=== PATIENT | male | born 1955 | race Caucasian/White ===

== ENCOUNTER 2019-11-21 08:11 | Outpatient (REF) | payer OTHER, SELFPAY ==
--- NOTE | 2019-11-21 08:15 | MR_ITS ---
EXAMINATION: MR LUMBAR SPINE WITHOUT CONTRAST CLINICAL INFORMATION: Right SI radiculopathy. Rule out disc and foraminal encroachment. COMPARISON: None TECHNIQUE: MRI of the lumbar spine was obtained using routine sequences without contrast. FINDINGS: The lumbar vertebral bodies maintain normal height. There is trace retrolisthesis of L2 on L3 with moderate disc height loss. Additional mild disc height loss is seen in the lower thoracic spine and at the L1-L2 level. Chronic fatty endplate changes with mild amount of subchondral marrow edema is seen at L2-L3. The distal spinal cord appears normal. The conus medullaris terminates normally at the L1 level. Bilateral T2 hyperintense renal cysts are noted. The extraspinal soft tissues are otherwise within normal limits. SPINAL LEVELS: T12-L1: Disc bulging with shallow central protrusion. No spinal canal or neural foraminal stenosis. L1-L2: Disc bulging with mild facet arthropathy. Mild flattening of the ventral thecal sac resulting in mild spinal canal stenosis. Minimal narrowing of the left neural foramen. L2-L3: Disc bulging with facet arthropathy resulting in mild to moderate spinal canal stenosis. Right foraminal extrusion causing compression of the exiting right L2 nerve root. Right more than left subarticular zones are effaced with resultant mass effect on the traversing right more than left L3 nerve roots. Mild narrowing left neural foramen. L3-L4: Disc bulging with shallow central protrusion. Moderate facet arthropathy. Mild spinal canal stenosis. Moderate right and mild left neural foraminal stenosis with mild mass effect on the exiting right L3 nerve root. L4-L5: Disc bulging with central protrusion causing mild flattening of the ventral thecal sac with encroachment on the subarticular zones. Moderate facet arthropathy. Mild bilateral neural foraminal stenosis without significant foraminal nerve root compression. L5-S1: Disc bulging with posterior annular fissuring. Moderate facet arthropathy. No spinal canal or neural foraminal stenosis. IMPRESSION: Multilevel degenerative spondylotic changes. At L2-L3 there is right foraminal extrusion causing compression of the exiting right L2 nerve root. Mild to moderate spinal canal stenosis, bilateral subarticular stenosis with mass effect on the traversing L3 nerve root and mild narrowing of the left neural foramen across this level. At L3-L4 there is moderate right and mild left neural foraminal stenosis with mild mass effect on the exiting right L3 nerve root. Additional milder spondylosis is detailed above.
== END 2019-11-21 08:12 | disposition home or self-care (01) ==
LOC: HO.MRI 08:11
PROVIDERS: PCP Internal Medicine; Visit Provider Psychiatry & Neurology Neurology
DX: M54.16 Radiculopathy, lumbar region (principal)
CPT/HCPCS: 72148

== ENCOUNTER → 2020-06-30 10:17 | Outpatient (BNVA) | payer OTHER, SELFPAY | PROVIDERS: PCP Internal Medicine; Visit Provider Orthopaedic Surgery | DX: M17.12 Unilateral primary osteoarthritis, left knee (principal) | CPT/HCPCS: 20610; J1040 ==

== ENCOUNTER 2020-11-19 08:41 | Outpatient (REF) | payer OTHER, SELFPAY ==
[2020-11-19 10:26] LABS: MANUAL DIFF FLAG NO
[2020-11-19 10:30] LABS: Basophils Percent Auto 0.7 % (0-2); Eosinophils Absolute Auto 0.1 X10*3/uL (0.0-0.4); Eosinophils Percent Auto 2.7 % (0-4); Hematocrit 41.8 % (42-52); Hemoglobin 13.9 g/dl (14.0-18.0); Imm Gran Abs Auto 0.02 X10*3/uL (0.00-0.03); Imm Gran Pct Auto 0.4 % (0.0-0.4); Lymphocytes Absolute Auto 1.2 X10*3/uL (1.2-4.9); Lymphocytes Percent Auto 25.8 % (20-40); Mean Corpuscular HGB Conc 33.3 g/dl (31.0-36.0); Mean Corpuscular Hemoglobin 29.6 pg (27.0-33.0); Mean Corpuscular Volume 88.9 fL (80-98); Mean Platelet Volume 11.4 fL (9.4-12.4); Monocytes Absolute Auto 0.5 X10*3/uL (0.1-1.2); Neutrophils Absolute Auto 2.7 X10*3/uL (2.0-8.3); Neutrophils Percent Auto 59.4 % (45-73); Platelet Count 172 X10*3/uL (160-400); Red Cell Distribution Width 13.2 % (11.0-16.0); White Blood Count 4.5 X10*3/uL (4.8-10.8)
[2020-11-19 10:52] LABS: Alanine Aminotransferase 27 U/L (0-40); Albumin Level 4.2 g/dL (3.5-5.0); Alkaline Phosphatase 65 U/L (39-117); Anion Gap 10 (12-20); Aspartate Amino Transferase 17 U/L (5-37); Bilirubin Total 0.8 mg/dL (0.0-1.0); Blood Urea Nitrogen 22 mg/dL (9-16); Calcium 9.1 mg/dL (8.4-10.2); Carbon Dioxide 27 mmol/L (22-29); Chloride 108 mmol/L (96-108); Cholesterol 160 mg/dL; Estimated Glomerular Filt Rate > 60; Glucose Fasting 111 mg/dL (60-99); HDL Cholesterol 41 mg/dL; LDL Cholesterol Calculated 100 mg/dl; Potassium 4.5 mmol/L (3.3-5.1); Sodium 140 mmol/L (135-145); Total Protein 6.6 g/dL (6.5-8.0); Triglycerides 99 mg/dL
[2020-11-19 11:13] LABS: Prostate Specific Antigen Scr 0.59 ng/mL (<0.05-4.0)
== END 2020-11-19 08:42 | disposition home or self-care (01) ==
LOC: HO.10HDL 08:41
PROVIDERS: Visit Provider Internal Medicine
DX: Z00.00 Encounter for general adult medical examination without abnormal findings (principal); Z12.5 Encounter for screening for malignant neoplasm of prostate
CPT/HCPCS: 36415; 80053; 80061; 84153; 85025

== ENCOUNTER 2021-08-06 08:27 | Outpatient (REF) | payer OTHER, SELFPAY ==
[2021-08-06 11:42] LABS: Alanine Aminotransferase 21 U/L (0-40); Albumin Level 4.2 g/dL (3.5-5.0); Alkaline Phosphatase 68 U/L (39-117); Anion Gap 11 (12-20); Aspartate Amino Transferase 15 U/L (5-37); Bilirubin Total 0.6 mg/dL (0.0-1.0); Blood Urea Nitrogen 19 mg/dL (9-16); Calcium 9.1 mg/dL (8.4-10.2); Carbon Dioxide 26 mmol/L (22-29); Chloride 108 mmol/L (96-108); Cholesterol 253 mg/dL; Estimated Glomerular Filt Rate > 60; Glucose Fasting 102 mg/dL (60-99); HDL Cholesterol 36 mg/dL; LDL Cholesterol Calculated 188 mg/dl; Potassium 4.3 mmol/L (3.3-5.1); Sodium 141 mmol/L (135-145); Total Protein 6.6 g/dL (6.5-8.0); Triglycerides 146 mg/dL
== END 2021-08-06 08:28 | disposition home or self-care (01) ==
LOC: HO.10HDL 08:27
PROVIDERS: Visit Provider Internal Medicine
DX: E78.00 Pure hypercholesterolemia, unspecified (principal)
CPT/HCPCS: 36415; 80053; 80061

== ENCOUNTER 2021-11-16 08:12 | Outpatient (REF) | payer OTHER, SELFPAY ==
[2021-11-16 11:09] LABS: Alanine Aminotransferase 27 U/L (0-40); Aspartate Amino Transferase 19 U/L (5-37); Cholesterol 155 mg/dL; HDL Cholesterol 37 mg/dL; LDL Cholesterol Calculated 94 mg/dl; Triglycerides 120 mg/dL
[2021-11-16 11:23] LABS: Prostate Specific Antigen Scr 0.62 ng/mL (<0.05-4.0)
== END 2021-11-16 08:13 | disposition home or self-care (01) ==
LOC: HO.10HDL 08:12
PROVIDERS: Visit Provider Internal Medicine
DX: Z12.5 Encounter for screening for malignant neoplasm of prostate (principal); E78.00 Pure hypercholesterolemia, unspecified
CPT/HCPCS: 36415; 80061; 84153; 84450; 84460

== ENCOUNTER 2022-05-02 16:52 | Outpatient (REF) | payer OTHER, SELFPAY ==
--- NOTE | ~2022-05-02 | XR_ITS ---
EXAMINATION: XR KNEE, LEFT XR KNEE STANDING, BILATERAL CLINICAL INDICATION: Left knee pain. COMPARISON: Left knee and AP knee standing 12/07/2018. TECHNIQUE: AP bilateral knee standing and left knee 2 views. FINDINGS: AP BILATERAL KNEE: There is moderate loss of medial compartment joint space left knee. The lateral compartment left knee and the medial and lateral compartment right knee are preserved. There is minimal periarticular spurring in the lateral compartment left knee. No loose bodies or bony erosive changes seen. The soft tissues are normal. LEFT KNEE: There is mild loss of patellofemoral compartment joint space with superior and inferior patellar spurring. No loose bodies or joint effusion seen. There is mild suprapatellar joint effusion. No bony erosive changes seen. XR/XR knee standing BI IMPRESSION: Moderate to severe medial compartment arthritic changes left knee which has progressed since 12/07/2018 exam. Mild periarticular spurring lateral compartment left knee. There is mild suprapatellar joint effusion suspected. There is superior and inferior patellar spurring as well. Right knee is unremarkable.
--- NOTE | ~2022-05-02 | XR_ITS ---
EXAMINATION: XR KNEE, LEFT XR KNEE STANDING, BILATERAL CLINICAL INDICATION: Left knee pain. COMPARISON: Left knee and AP knee standing 12/07/2018. TECHNIQUE: AP bilateral knee standing and left knee 2 views. FINDINGS: AP BILATERAL KNEE: There is moderate loss of medial compartment joint space left knee. The lateral compartment left knee and the medial and lateral compartment right knee are preserved. There is minimal periarticular spurring in the lateral compartment left knee. No loose bodies or bony erosive changes seen. The soft tissues are normal. LEFT KNEE: There is mild loss of patellofemoral compartment joint space with superior and inferior patellar spurring. No loose bodies or joint effusion seen. There is mild suprapatellar joint effusion. No bony erosive changes seen. XR/XR knee LT 2V IMPRESSION: Moderate to severe medial compartment arthritic changes left knee which has progressed since 12/07/2018 exam. Mild periarticular spurring lateral compartment left knee. There is mild suprapatellar joint effusion suspected. There is superior and inferior patellar spurring as well. Right knee is unremarkable.
== END 2022-05-02 16:53 | disposition home or self-care (01) ==
LOC: HO.HOSX 16:52
PROVIDERS: Visit Provider Physician Assistant
DX: M17.12 Unilateral primary osteoarthritis, left knee (principal)
CPT/HCPCS: 20610; 73560; 73565; J1040

== ENCOUNTER 2022-06-27 15:14 | Outpatient (REF) | payer OTHER, SELFPAY ==
[2022-06-27 15:25] LABS: MANUAL DIFF FLAG NO
[2022-06-27 15:48] LABS: Basophils Percent Auto 0.4 % (0-2); Eosinophils Absolute Auto 0.1 X10*3/uL (0.0-0.4); Eosinophils Percent Auto 2.1 % (0-4); Hematocrit 42.8 % (42.0-52.0); Hemoglobin 14.2 g/dl (14.0-18.0); Imm Gran Abs Auto 0.04 X10*3/uL (0.00-0.03); Imm Gran Pct Auto 0.7 % (0.0-0.4); Lymphocytes Absolute Auto 1.5 X10*3/uL (1.2-4.9); Lymphocytes Percent Auto 26.3 % (20-40); Mean Corpuscular HGB Conc 33.2 g/dl (31.0-36.0); Mean Corpuscular Hemoglobin 29.8 pg (27.0-33.0); Mean Corpuscular Volume 89.7 fL (80.0-98.0); Mean Platelet Volume 11.1 fL (9.4-12.4); Monocytes Absolute Auto 0.6 X10*3/uL (0.1-1.2); Monocytes Percent Auto 9.9 % (2-11); Neutrophils Absolute Auto 3.4 x10*3/uL (2.0-8.3); Neutrophils Percent Auto 60.6 % (45-73); Platelet Count 169 X10*3/uL (160-400); Red Blood Count 4.77 X10*6/uL (4.60-5.80); Red Cell Distribution Width 13.7 % (11.0-16.0); White Blood Count 5.7 X10*3/uL (4.8-10.8)
[2022-06-27 16:27] LABS: Alanine Aminotransferase 27 U/L (0-40); Albumin Level 4.3 g/dL (3.5-5.0); Alkaline Phosphatase 61 U/L (39-117); Anion Gap 10 (12-20); Aspartate Amino Transferase 18 U/L (5-37); Bilirubin Total 0.8 mg/dL (0.0-1.0); Blood Urea Nitrogen 15 mg/dL (9-16); C Reactive Protein < 0.04 mg/dL (< or = 0.50); Calcium 9.1 mg/dL (8.4-10.2); Carbon Dioxide 29 mmol/L (22-29); Chloride 109 mmol/L (96-108); Estimated Glomerular Filt Rate > 60; Glucose Random 95 mg/dL (60-115); Potassium 4.1 mmol/L (3.3-5.1); Sodium 144 mmol/L (135-145); Total Protein 6.6 g/dL (6.5-8.0)
[2022-06-27 18:14] LABS: Appearance Urine Clear; Color Urine Yellow; Glucose Urine UA Negative (Negative); Leukocyte Esterase Urine Negative (Negative); Nitrite Urine Negative (Negative); PH 5.5 (5.0-9.0); Specific Gravity - Urine 1.025 (1.005-1.025); Urine Blood Negative (Negative); Urine Ketones Trace mg/dL (Negative); Urine Protein Negative (Neg-Trace)
== END 2022-06-27 15:15 | disposition home or self-care (01) ==
LOC: HO.LAB 15:14
PROVIDERS: PCP Internal Medicine; Visit Provider Internal Medicine
DX: R10.9 Unspecified abdominal pain (principal); E78.00 Pure hypercholesterolemia, unspecified
CPT/HCPCS: 36415; 80053; 81003; 85025; 86140; 87086

== ENCOUNTER 2022-07-04 11:55 | Outpatient (REF) | payer OTHER, SELFPAY ==
--- NOTE | ~2022-07-04 | CT_ITS ---
EXAMINATION: CT ABDOMEN AND PELVIS WITHOUT CONTRAST CLINICAL INFORMATION: 67-year-old male with left flank pain COMPARISON: None available. TECHNIQUE: Multidetector volumetric imaging was performed from the superior aspect of the liver through the pubic symphysis. Sagittal and coronal reformatted images were obtained on the technologist's workstation. This CT examination was performed using dose optimization techniques as appropriate, variously including the following: *Automated exposure control *Adjustment of mA and/or kV according to patient size (this includes techniques or standardized protocols for targeted exams where dose is matched to indication/reason for exam; i.e. extremities or head) *Use of iterative reconstruction technique DLP: 546 mGy-cm FINDINGS: LUNG BASES: There is left lower lobe atelectasis adjacent to the tortuous descending thoracic aorta. Visualized heart is unremarkable. LIVER, GALLBLADDER, AND BILIARY TREE: There is 0.9 cm low-attenuation lesion in the right lobe of the liver statistically most likely cyst. The gallbladder is unremarkable with no evidence of radiopaque gallstones, gallbladder wall thickening, or obvious pericholecystic inflammatory changes. CBD is not dilated. PANCREAS: Unremarkable. SPLEEN: Spleen is enlarged measured 16 cm. ADRENAL GLANDS: Unremarkable. KIDNEYS AND URETERS: Right kidney revealed upper pole exophytic simple 3.7 x 4.6 cm cyst no hydroureteronephrosis or nephrolithiasis. Left kidney demonstrate small cortical cysts measured 1.3 cm upper pole and 1.8 cm in the lower pole. There is no hydroureteronephrosis or nephrolithiasis. Ureters are not dilated BLADDER: Unremarkable. GASTROINTESTINAL TRACT: The small and large bowel are unremarkable. The appendix is unremarkable. ABDOMINAL WALL: There is small fat-containing umbilical hernia and small fat-containing right inguinal hernia LYMPH NODES: Normal. VASCULAR: Unremarkable. PELVIC VISCERA: Unremarkable. OSSEOUS STRUCTURES: There are mild multilevel degenerative spondylosis with narrowing cough L3-L3 intervertebral disc space. CT/CT abdomen pelvis wo IV con IMPRESSION: 1. No evidence of nephrolithiasis or hydroureteronephrosis. 2. Bilateral small simple renal cysts. 3. Splenomegaly. 4. Small fat-containing umbilical hernia and small right inguinal hernia. 5. There is 0.9 cm low-attenuation lesion in the right lobe of the liver statistically most likely cyst. Fleischner guidelines were followed.
== END 2022-07-04 11:56 | disposition home or self-care (01) ==
LOC: HO.CT 11:55
PROVIDERS: PCP Internal Medicine; Visit Provider Internal Medicine
DX: R07.82 Intercostal pain (principal)
CPT/HCPCS: 74176

== ENCOUNTER 2022-07-12 06:11 | Outpatient (REF) | payer OTHER, SELFPAY ==
--- NOTE | ~2022-07-12 | XR_ITS ---
EXAMINATION: XR RIBS, LEFT CLINICAL INFORMATION: Posterior rib pain. Rule out fracture. COMPARISON: Previous chest and left rib x-rays from 2017 TECHNIQUE: 3 views of the left ribs were obtained. FINDINGS: The cardiac and mediastinal contours are stable. The descending thoracic aorta is tortuous but unchanged. The lungs are clear. No pleural effusion or pneumothorax. No acute rib fracture. Old left first and posterior 11th and 12th rib fractures. Degenerative changes of the thoracic spine. Postsurgical changes to the cervical spine. XR/XR ribs LT min 3V w CXR1V IMPRESSION: No evidence for acute disease in the chest. No acute rib fracture.
== END 2022-07-12 06:12 | disposition home or self-care (01) ==
LOC: HO.XRAY 06:11
PROVIDERS: PCP Internal Medicine; Visit Provider Internal Medicine
DX: R07.81 Pleurodynia (principal)
CPT/HCPCS: 71101

== ENCOUNTER → 2022-08-05 12:46 | Outpatient (REF) | payer OTHER, SELFPAY ==
--- NOTE | 2022-08-05 12:50 | CA_ITS ---
Transthoracic Echocardiogram Patient (Last, First, Middle): Pieter Hunter, Gender: Male Date of : 1955 Age: 67 Procedure Date: 08/05/2022 Procedure Type: Transthoracic Echocardiogram Location: OP Height: 170.18 cm Weight: 86.18 kg BSA: 1.98 m2 Heart Rate: bpm BP: 124 / 80 mmHg Dining Room Attendant: Referring MD: Remi Oviedo MD Parole Supervisor: Miller Ko MD Symptoms: AORTIC ECTASIA, UNSPEC SITE Study Quality: Good ECG Rhythm: Sinus Conclusions: - 1. Low normal LV systolic function with LVEF of 50-55% with impaired relaxation filling pattern 2. Trivial aortic regurgitation 3. Normal RV systolic pressure 4. Mildly dilated ascending aorta at 3.8 cm 5. No gross pericardial effusion Findings Left Ventricle Normal left ventricular cavity size. There is normal left ventricular wall thickness. The left ventricular systolic function is low normal. The visually estimated ejection fraction is between 50-55%. Spectral Doppler is indicative of an impaired relaxation filling pattern. E/E prime ratio is <8, consistent with normal filling pressures. Evidence suggests grade I (mild) diastolic dysfunction. Right Ventricle Normal right ventricular cavity size and systolic function. Atria The left atrium is mildly dilated. There is no evidence of interatrial shunt. The right atrium is normal in size. Aortic Valve Normal aortic valve structure and function. There is no aortic valve stenosis. There is trace (trivial) aortic valve regurgitation. Mitral Valve There is mild anterior and posterior mitral leaflet thickening. There is trace mitral valve regurgitation. There is no mitral valve stenosis. Pulmonic Valve The pulmonic valve was not well visualized. Tricuspid Valve Normal tricuspid valve structure. There is trace tricuspid valve regurgitation. The right ventricular systolic pressure is normal. The right ventricular systolic pressure is 29 mmHg. Normal right atrial pressure. There is no evidence of pulmonary hypertension. Great Vessels The pulmonary artery was not well visualized. There is mild dilatation of the ascending aorta measuring 3.80 cm. Venous The inferior vena cava is normal in size and collapses greater than 50% with inspiration. Pericardium/Pleural There is no evidence of pericardial effusion. Prior Study Comparison No prior study available for comparison. Measurements 2D Linear Measurements IVSd: 1.15 0.6-0.9/0.6-1.0 cm LVIDd: 4.50 3.9-5.3/4.2-5.9 cm LVIDd Index: 2.27 2.4-3.2/2.2-3.1 cm/m2 LVIDs: 2.74 2.0-3.6 cm LVPWd: 1.08 0.7-1.1 cm Ao Root: 3.50 2.1-3.5 cm LA Diam: 3.20 2.7-3.8/3.0-4.0 cm LAIDs Index: 1.62 1.5-2.3 cm/m2 LV Mass: 222.24 67-162/88-224 g LV Mass Index: 112.24 43-95/49-115 g/m2 LVOT Diam: 2.20 3.0+(-)1.3 cm 2D Systolic Function EF 4C: 52.40 >55% EF 2C: 51.80 >55% EF BiP: 50.40 >55% Mitral Valve MV Pk E: 0.67 MV PK A: 0.63 MV Decel Time: 177.00 E/A: 1.10 E'Lateral: 9.03 E'Medial: 7.40 E/E' Med: 9.00 E/E' Lat: 7.40 PHT: 52.00 MVA PHT: 4.23 Decel [place]: 3.77 Aortic Valve AoV Pk Willy: 1.38 AoV Mn Willy: 0.94 AoV VTI: 0.33 AoV Pk Grad: 8.00 Aov Mn Grad: 4.00 JOSSELYN Cont.VTI: 2.51 LVOT LVOT Pk Willy: 0.97 LVOT Mn Willy: 0.65 LVOT VTI: 0.22 LVOT Pk Grad: 4.00 LVOT Mn Grad: 2.00 LVOT Diam: 2.20 LVOT Area: 3.80 Diastolic Function MV Pk E: 0.67 MV Pk A: 0.63 E/A: 1.10 E'Medial: 7.40 E/E' Med: 9.00 E' Laterial: 9.03 E/E' Lat: 7.40 Right Ventricle TAPSE (mm): 30.00 TVS' Willy: 11.00 Tricuspid Valve TR Pk Willy: 2.54 TR Pk Grad: 26.00 RA Press: 3.00 RVSP: 29.00 Great Vessels Aorta Ao Root-2D: 3.50 2.0-3.7 cm Ao Asc: 3.80 2.1-3.4 cm Pulmonary Valve PV Pk Willy: 1.07 Peak PV Grad: 5.00 Updated in Other Vendor System with Status of Final Miller Ko MD electronically signed on 08/06/2022 1:18:38 PM with status of Final
== END ==
LOC: HO.CARD 12:46
PROVIDERS: Visit Provider Internal Medicine
DX: I77.819 Aortic ectasia, unspecified site (principal)
CPT/HCPCS: 93306

== ENCOUNTER 2022-11-18 09:02 | Outpatient (REF) | payer MEDICARE, SELFPAY ==
[2022-11-18 10:49] LABS: MANUAL DIFF FLAG NO
[2022-11-18 10:55] LABS: Appearance Urine Clear; Color Urine Yellow; Glucose Urine UA Negative (Negative); Leukocyte Esterase Urine Negative (Negative); Nitrite Urine Negative (Negative); PH 5.5 (5.0-9.0); Specific Gravity - Urine 1.025 (1.005-1.025); Urine Blood Negative (Negative); Urine Ketones Negative (Negative); Urine Protein Negative (Neg-Trace)
[2022-11-18 11:00] LABS: Bacteria Urine None Seen (None Seen); Hyaline Casts Urine 0-2 /LPF (0-2); RBC Urine 0-2 /HPF (0-2); Squamous Epithelial Cell Urine 0-2 /HPF (0-2); WBC Urine 0-5 /HPF (0-5)
[2022-11-18 11:07] LABS: Basophils Percent Auto 0.6 % (0-2); Eosinophils Absolute Auto 0.1 X10*3/uL (0.0-0.4); Eosinophils Percent Auto 2.4 % (0-4); Hematocrit 44.4 % (42.0-52.0); Hemoglobin 14.8 g/dl (14.0-18.0); Imm Gran Abs Auto 0.03 X10*3/uL (0.00-0.03); Imm Gran Pct Auto 0.6 % (0.0-0.4); Lymphocytes Absolute Auto 1.1 X10*3/uL (1.2-4.9); Lymphocytes Percent Auto 22.4 % (20-40); Mean Corpuscular HGB Conc 33.3 g/dl (31.0-36.0); Mean Corpuscular Hemoglobin 29.8 pg (27.0-33.0); Mean Corpuscular Volume 89.5 fL (80.0-98.0); Mean Platelet Volume 11.6 fL (9.4-12.4); Monocytes Absolute Auto 0.5 X10*3/uL (0.1-1.2); Monocytes Percent Auto 10.2 % (2-11); Neutrophils Absolute Auto 3.1 x10*3/uL (2.0-8.3); Neutrophils Percent Auto 63.8 % (45-73); Platelet Count 162 X10*3/uL (160-400); Red Blood Count 4.96 X10*6/uL (4.60-5.80); Red Cell Distribution Width 13.4 % (11.0-16.0); White Blood Count 4.9 X10*3/uL (4.8-10.8)
[2022-11-18 11:18] LABS: Alanine Aminotransferase 29 U/L (0-40); Albumin Level 4.3 g/dL (3.5-5.0); Alkaline Phosphatase 65 U/L (39-117); Anion Gap 15 (12-20); Aspartate Amino Transferase 19 U/L (5-37); Bilirubin Total 0.6 mg/dL (0.0-1.0); Blood Urea Nitrogen 25 mg/dL (9-16); C Reactive Protein < 0.10 mg/dL (< or = 0.50); Calcium 8.9 mg/dL (8.4-10.2); Carbon Dioxide 24 mmol/L (22-29); Chloride 109 mmol/L (96-108); Cholesterol 144 mg/dL (<200); Estimated Glomerular Filt Rate > 60; Glucose Fasting 120 mg/dL (60-99); HDL Cholesterol 40 mg/dL (>40); LDL Cholesterol Calculated 90 mg/dL (<100); Potassium 4.6 mmol/L (3.3-5.1); Sodium 143 mmol/L (135-145); Total Protein 6.9 g/dL (6.5-8.0); Triglycerides 73 mg/dL (<150)
[2022-11-18 11:36] LABS: Prostate Specific Antigen Scr 0.91 ng/mL (<0.05-4.0)
== END 2022-11-18 09:03 | disposition home or self-care (01) ==
LOC: HO.10HDL 09:02
PROVIDERS: Visit Provider Internal Medicine
DX: Z12.5 Encounter for screening for malignant neoplasm of prostate (principal); E78.00 Pure hypercholesterolemia, unspecified; D64.9 Anemia, unspecified; R82.90 Unspecified abnormal findings in urine
CPT/HCPCS: 36415; 80053; 80061; 81001; 82550; 84153; 85025; 86140; 87086

== ENCOUNTER 2022-11-24 09:44 | Outpatient (AMB) | payer MEDICARE, SELFPAY ==
--- NOTE | 2022-11-24 10:00 | MHC.OFFVIS ---
Intake Intake Visit Reasons: OV - LT KNEE 03/14/19 - Cont Pain Intake Note: Pieter is a 67 year old male who presents today for a follow up of his left knee pain, last injection 05/02/22. Patient reports his last injection gave him relief for more than 3 months, he would like to repeat injections. He is having concerns of his knee feeling numb when sitting down. Allergies No Known Allergies [No Known Allergies*] Allergy (Verified 11/24/22 10:10) HPI OV - LT KNEE 03/14/19 - Cont Pain HPI Details 67-year-old male who presents in the office today for a follow up of left knee pain. The patient had a cortisone injection in the left knee on 05/02/2022, which gave him 3 months of relief. He states when he sits down he has a numbing sensation in the knee, which causes his difficulty to stand up to walk. He states he has to ?warm up? to get moving to walk. He would like to repeat the cortisone injection while in the office today. The patient is 2 years status post left knee arthroscopy, which was performed on 03/14/2019. 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 No ecchymosis, erythema, or joint effusion. No tenderness to palpation to the medial or lateral joint lines. Full knee extension and flexion. Crepitus felt with ROM. Negative Patsy's. Negative anterior draw. NVI. Psych Mental Status: mental status grossly normal Office Procedures Joint Injection/Drain Joint Injection/Drain Primary Site: left knee Prep: site was prepped using aseptic technique, ethochloride spray was applied and injection warnings given Injected: 80 mg of, DepoMedrol, with 8 mL of (2% plain lido ) and in the joint Procedure: The patient tolerated the procedure well, but had some pain with the injection and there was some relief with the local anesthesia Coding 54576 - Large joint Procedure code (CPT) selection complete Results Reviewed Results Reviewed: 11/24/22 10:03 Lidocaine HCl 2 % MPF [Xylocaine 2 % MPF] 5 ml .ROUTE .STK-MED ONE Lidocaine HCl 2 % MPF [Xylocaine 2 % MPF] 5 ml .ROUTE .STK-MED ONE methylPREDNISolone acetate [DEPO-MedroL] 80 mg .ROUTE .STK-MED ONE Assessment & Plan Assessment & Plan (1) Primary osteoarthritis of left knee: Code(s): M17.12 - Unilateral primary osteoarthritis, left knee Plan Mr. Hunter is a 67-year-old male who presents in the office today for a follow up of left knee pain. The patient had a cortisone injection in the left knee on 05/02/2022, which gave him 3 months of relief. He states when he sits down he has a numbing sensation in the knee, which causes his difficulty to stand up to walk. He states he has to ?warm up? to get moving to walk. He would like to repeat the cortisone injection while in the office today. The patient is 2 years status post left knee arthroscopy, which was performed on 03/14/2019. The patient was offered a cortisone injection in the left knee with 80 mg of DepoMedrol. The patient was explained the risk, benefits, and alternatives to receiving this injection. After receiving consent for the injection, the patient had the procedure done while in office today. The patient tolerated the procedure well with no complications. He will be given a genumed knee brace, off the shelf, while in the office today. He will also be referred to Physiatry for further evaluation and treatment of the numbness and tingling. Follow up will be PRN, or sooner if needed. Patient Instructions: Scribed for Kimberly York PA-C by gerson Escobar scribe, on 11/24/2022 at 9:46 am, EST. Coding Level of Care Code Est Pt Level 3 (18347) Diagnoses Primary osteoarthritis of left knee M17.12 CPT Codes Coding - 88652 Large joint: 51383 - Large joint ([id number])
== END 2022-11-24 10:31 | disposition home or self-care (01) ==
PROVIDERS: Visit Provider Physician Assistant
DX: M17.12 Unilateral primary osteoarthritis, left knee (principal)
CPT/HCPCS: 20610; 99213

== ENCOUNTER → 2022-11-24 09:44 | Outpatient (BNVA) | payer MEDICARE, SELFPAY | PROVIDERS: Visit Provider Physician Assistant | DX: M17.12 Unilateral primary osteoarthritis, left knee (principal) | CPT/HCPCS: 20610; 99212; J1040 ==

== ENCOUNTER 2023-01-23 14:50 | Outpatient (AMB) | payer MEDICARE, SELFPAY ==
--- NOTE | 2023-01-23 14:52 | MHC.OFFVIS ---
Intake Intake Visit Reasons: Blood in Semen Intake Note: New Patient presents for initial visit for blood in semen Urology Medications: none Blood Thinner: none Wagon Person Required: No Accompanied by: Self / Same As Patient Allergies No Known Allergies [No Known Allergies*] Allergy (Verified 01/24/23 01:39) Medication List - Last Reconciled 01/24/23 by ELIZABETH Squires atorvastatin 20 mg PO DAILY cyclobenzaprine 10 mg PO BID diclofenac sodium 75 mg PO BID HPI HPI Comments History of Present Illness Details Pieter is a very pleasant 67-year-old male patient of Dr. Oviedo. He has a past medical history of hypercholesteremia. He presents to the office today as a new patient for hematospermia. In discussion with the patient today he reports approximately 3-4 months ago experiencing an episode of hematospermia. He reports having followed up with PCP regarding this issue at which time recommendations were made for Urology follow-up for further assessment evaluation. Patient reports noting one episode of hematospermia however has not had any reoccuring episodes since. Discussed at length potential causes of hematospermia. He otherwise denies any bothersome urinary issues. He denies urinary urgency, urinary frequency, incontinence, nocturia, hematuria, dysuria, foul smelling urine, changes to urinary stream, flank pain, fever, and or chills. He is happy with his current voiding parameters. In office urinalysis results reviewed with the patient today. In review of patient's chart it appears PSAs are as follows: 11/10--0.6, 11/11--0.6, 11/12--0.9. 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 Review of Systems Const All systems reviewed & are unremarkable except as noted in HPI and below Physical Exam Const General: cooperative, healthy appearing, comfortable, no acute distress, well developed, alert and awake Orientation/consciousness: patient oriented x3 Limitations: no limitations HEENT Head: Yes normal to inspection, Yes normocephalic and Yes atraumatic Ears: hearing grossly normal bilaterally Eyes General: appearance normal, both eyes and all related structures Neck Neck: Yes normal visual inspection and Yes trachea midline Chest Chest palpation & inspection: normal inspection of the chest Resp Effort & Inspection: normal respiratory effort and able to speak in complete sentences Cardio Rate: regular rate GI Inspection: Yes normal to inspection General: Yes no CVA tenderness Back/Spine/Pelvis Back: no CVA tenderness Skin General skin exam: no rashes or lesions noted Neuro General: patient oriented x3 Extrem General: Yes normal to inspection Psych Appearance: grossly normal and well kempt Mental Status: mental status grossly normal Speech and movement: Normal speech and movement present and Clear speech present Affect: normal affect Attitude: cooperative Thought process: Normal thought process present Thought content: Normal thought content present Insight: Fair insight present (Psych) Judgement: Fair judgement present (Psych) Results AMB Urinalysis, Automated UA Leukoctes 0 Zoya/uL Last Edit by Hubei [employer] on 01/23/23 15:08 UA Nitrite Negative Last Edit by Hubei [employer] on 01/23/23 15:08 UA Urobilinogen 0.2 mg/dL Last Edit by [employer]ubei [employer] on 01/23/23 15:08 UA Protein 0 mg/dL Last Edit by [employer] on 01/23/23 15:08 UA pH 6.0 Last Edit by [employer]i [employer] on 01/23/23 15:08 UA Blood 0 Crow/uL Last Edit by Hubei [employer] on 01/23/23 15:08 UA Specific [place] 1.030 Last Edit by Hubei [employer] on 01/23/23 15:08 UA Ketone Negative Last Edit by [employer]i [employer] on 01/23/23 15:08 UA Bilirubin 0 mg/dL Last Edit by [employer]ubei [employer] on 01/23/23 15:08 UA Glucose 0 mg/dL Last Edit by Hubei [employer] on 01/23/23 15:08 Results Reviewed Results Reviewed: Laboratory Last Values Urine pH (Auto) 6.0 01/23/23 14:54 Specific [place] (Auto) 1.030 01/23/23 14:54 Urine Protein (Auto) 0 mg/dL 01/23/23 14:54 Glucose (UA)(Auto) 0 mg/dL 01/23/23 14:54 Urine Ketones (Auto) Negative 01/23/23 14:54 Urine Blood (Auto) 0 Crow/uL 01/23/23 14:54 Urine Nitrite (Auto) Negative 01/23/23 14:54 Urine Bilirubin (Auto) 0 mg/dL 01/23/23 14:54 Urine Urobilinogen (Auto) 0.2 mg/dL 01/23/23 14:54 Leukocyte Esterase (Auto) 0 Zoya/uL 01/23/23 14:54 Assessment & Plan Assessment & Plan (1) Hematospermia: Code(s): R36.1 - Hematospermia Plan In office urinalysis results reviewed with the patient today; as noted above. Discussed at length potential causes of hematospermia. Reassurance provided. Recent PSA results reviewed with the patient today; as noted above. Discussed, educated, encouraged on the importance of drinking plenty of water daily. Patient denies any bothersome urinary issues. Patient reports be happy with current voiding parameters. Follow-up in 3 months; or sooner with any issues, concerns, and or questions. Orders: Orders AMB Urinalysis Automated 01/23/23 Z13.9 - Encounter for screening, unspecified Patient Instructions: The patient had an opportunity to ask questions regarding the treatment plan. All questions were answered. Physical exam, labs, and imaging were discussed and reviewed in detail. As well as risks, benefits, and discussion of treatment choices. No major barriers to understanding were identified. The patient expressed understanding and agreement with the above treatment plan. The patient was made aware they should contact our office by phone for worsening of their current condition, the appearance of new symptoms, or with any questions or concerns. Compliance is encouraged with any medications and follow up testing that is ordered. It is a privilege to be allowed the opportunity to participate in? your urological care.? Again, if you have any questions or concerns If you have any questions or concerns please do not hesitate to contact me. The office is [phone]. This note is constructed using voice recognition software. While every effort has been made to ensure accuracy admissions coordinator errors may have been included. Yours sincerely, ELIZABETH Squires Coding Level of Care Code New Pt Level 3 (76312) Diagnoses Hematospermia R36.1
== END 2023-01-23 15:46 | disposition home or self-care (01) ==
PROVIDERS: PCP Internal Medicine; Visit Provider Nurse Practitioner Family
DX: R36.1 Hematospermia (principal)
CPT/HCPCS: 99203

== ENCOUNTER → 2023-01-23 14:50 | Outpatient (BNVA) | payer MEDICARE, SELFPAY | PROVIDERS: PCP Internal Medicine; Visit Provider Nurse Practitioner Family | DX: R36.1 Hematospermia (principal) | CPT/HCPCS: 81003; 99202 ==

== ENCOUNTER 2023-01-30 07:59 | Outpatient (REF) | payer MEDICARE, SELFPAY ==
[2023-01-30 11:03] LABS: Anion Gap 11 (12-20); Blood Urea Nitrogen 19 mg/dL (9-16); Carbon Dioxide 28 mmol/L (22-29); Chloride 105 mmol/L (96-108); Estimated Glomerular Filt Rate > 60; Glucose Random 102 mg/dL (60-115); Sodium 140 mmol/L (135-145)
[2023-01-30 11:08] LABS: Estimated Average Glucose 111 mg/dL; Hemoglobin A1c % 5.5 % (<6.0)
== END 2023-01-30 08:00 | disposition home or self-care (01) ==
LOC: HO.10HDL 07:59
PROVIDERS: Visit Provider Internal Medicine
DX: R73.01 Impaired fasting glucose (principal)
CPT/HCPCS: 36415; 80048; 83036

== ENCOUNTER 2023-06-09 12:32 | Outpatient (AMB) | payer MEDICARE, SELFPAY ==
--- NOTE | 2023-06-09 12:35 | A.OFFVIS_ITS ---
Intake Visit Reasons: OV-Left knee injection-last inj. 11/24/22 Intake Note: Pieter is a 68 year old male who presents today for a repeat left knee injection. His last injection was done on 11/24/22. He reports good releif with this injection, but since he was seen he twisted the knee causing some increased pain. Allergies No Known Allergies [No Known Allergies*] Allergy (Verified 06/09/23 12:42) HPI HPI OV-Left knee injection-last inj. 11/24/22: Details: 68-year-old male who presents in the office today for a follow up of left knee osteoarthritis. I last saw the patient in the office on 11/24/2022 when he was given a cortisone injection. He was also given a genumed knee brace. A referral was placed for the patient to be evaluated by Physiatry for numbness and tingling. While in the office today the patient would like to request a repeat cortisone injection. He states the last one gave him good relief. However, he reports twisting his knee and this caused him an increase in pain. 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 No ecchymosis, erythema, or joint effusion. No tenderness to palpation to the medial or lateral joint lines. Full knee extension and flexion. Crepitus felt with ROM. Negative Patsy's. Negative anterior draw. NVI. Psych Mental Status: mental status grossly normal Office Procedures Joint Injection/Drain Joint Injection/Drain Primary Site: left knee Prep: site was prepped using aseptic technique, ethochloride spray was applied a nd injection warnings given Injected: 80 mg of, DepoMedrol, with 8 mL of (2% plain lido ) and in the joint Approach Used: anterolateral Procedure: The patient tolerated the procedure well, but had some pain with the injection and there was some relief with the local anesthesia Coding 41879 - Large joint Procedure code (CPT) selection complete Assessment & Plan Assessment & Plan (1) Primary osteoarthritis of left knee: Code(s): M17.12 - Unilateral primary osteoarthritis, left knee Category: Medical Plan Mr. Hunter is a 68-year-old male who presents in the office today for a follow up of left knee osteoarthritis. I last saw the patient in the office on 11/24/2022 when he was given a cortisone injection. He was also given a genumed knee brace. A referral was placed for the patient to be evaluated by Physiatry for numbness and tingling. While in the office today the patient would like to request a repeat cortisone injection. He states the last one gave him good relief. However, he reports twisting his knee and this caused him an increase in pain. The patient was offered a cortisone injection in the left knee with 80 mg of DepoMedrol. The patient was explained the risk, benefits, and alternatives to receiving this injection. After receiving consent for the injection, the patient had the procedure done while in the office today. The patient tolerated the procedure well with no complications. Follow up will be PRN, or sooner if needed. Patient Instructions: Scribed by Allie Adams medical case worker, for Kimberly York PA-C on 06/09/2023 at 12:35 pm, EST.
== END 2023-06-09 12:48 | disposition home or self-care (01) ==
PROVIDERS: PCP Internal Medicine; Visit Provider Physician Assistant
DX: M17.12 Unilateral primary osteoarthritis, left knee (principal)
CPT/HCPCS: 20610; 99213

== ENCOUNTER → 2023-06-09 12:32 | Outpatient (BNVA) | payer MEDICARE, SELFPAY | PROVIDERS: PCP Internal Medicine; Visit Provider Physician Assistant | DX: M17.12 Unilateral primary osteoarthritis, left knee (principal) | CPT/HCPCS: 20610; 99212; J1010 ==

== ENCOUNTER 2023-08-15 08:23 | Outpatient (AMB) | payer MEDICARE, SELFPAY ==
--- NOTE | 2023-08-15 08:36 | MHC.OFFVIS ---
Intake Visit Reasons: 3m follow up Intake Note: Patient presents for follow up visit for blood in semen Urology Medications: none Blood Thinner: none Ditch Worker Required: No Accompanied by: Self / Same As Patient Allergies No Known Allergies [No Known Allergies*] Allergy (Verified 08/15/23 15:28) Medication List - Last Reconciled 08/15/23 by ELIZABETH Squires atorvastatin 20 mg PO DAILY cyclobenzaprine 10 mg PO BID diclofenac sodium 75 mg PO BID HPI Comments Details: Pieter is a very pleasant 67-year-old male patient of Dr. Oviedo. He has a past medical history of hypercholesteremia. He presents to the office today for follow-up of his hematospermia. Of note, patient was last seen approximately 6 months ago at which time discussion regarding potential causes of hematospermia were discussed. We discussed in most cases hematospermia resolved spontaneously and no intervention is required. During last office visit recommendation was made for three-month follow-up however patient reports he felt hematospermia had somewhat improved however noted increased episodes over the last few weeks therefore he scheduled a follow-up for review. In office urinalysis results reviewed with the patient today. We again discussed potential causes of hematospermia. Discussed further intervention to include transrectal ultrasound verses in office cystoscopy verses semen culture and or pelvic MRI. Risks and benefits of these interventions were discussed at length. He otherwise denies any bothersome urinary issues or concerns. He denies urinary urgency, urinary frequency, incontinence, nocturia, hematuria, dysuria, foul smelling urine, changes to urinary stream, flank pain, fever, and or chills. He is happy with his current voiding parameters. PSAs are as follows: PSAs: 11/10 0.6, 11/11 0.6, 11/12 0.9. PFSH Medical History Hypercholesteremia Surgical History H/O spinal fusion H/O left knee surgery Social History Current occupational status: employed Current occupation: [employer] - Right Handed Review of Systems Const All systems reviewed & are unremarkable except as noted in HPI and below Physical Exam Const General: cooperative, healthy appearing, comfortable, no acute distress, well developed, alert and awake Orientation/consciousness: patient oriented x3 Limitations: no limitations HEENT Head: Yes normal to inspection, Yes normocephalic and Yes atraumatic Ears: hearing grossly normal bilaterally Eyes General: appearance normal, both eyes and all related structures Neck Neck: Yes normal visual inspection and Yes trachea midline Chest Chest palpation & inspection: normal inspection of the chest Resp Effort & Inspection: normal respiratory effort and able to speak in complete sentences Cardio Rate: regular rate GI Inspection: Yes normal to inspection General: Yes no CVA tenderness Back/Spine/Pelvis Back: no CVA tenderness Skin General skin exam: no rashes or lesions noted Neuro General: patient oriented x3 Extrem General: Yes normal to inspection Psych Appearance: grossly normal and well kempt Mental Status: mental status grossly normal Speech and movement: Normal speech and movement present and Clear speech present Affect: normal affect Attitude: cooperative Thought process: Normal thought process present Thought content: Normal thought content present Insight: Fair insight present (Psych) Judgement: Fair judgement present (Psych) Results AMB Urinalysis, Automated UA Leukoctes 15 Zoya/uL Last Edit by [employer] on 08/15/23 08:52 UA Nitrite Negative Last Edit by [employer] on 08/15/23 08:52 UA Urobilinogen 1 mg/dL Last Edit by [employer] on 08/15/23 08:52 UA Protein 30 mg/dL Last Edit by [employer] on 08/15/23 08:52 UA pH 6.0 Last Edit by [employer] on 08/15/23 08:52 UA Blood 0 Crow/uL Last Edit by [employer] on 08/15/23 08:52 UA Specific [place] 1.025 Last Edit by [employer] on 08/15/23 08:52 UA Ketone Positive Last Edit by [employer] on 08/15/23 08:52 UA Bilirubin 2 mg/dL Last Edit by [employer] on 08/15/23 08:52 UA Glucose 0 mg/dL Last Edit by [employer] on 08/15/23 08:52 Results Reviewed Results Reviewed: Laboratory Last Values Urine pH (Auto) 6.0 08/15/23 08:51 Specific [place] (Auto) 1.025 08/15/23 08:51 Urine Protein (Auto) 30 mg/dL 08/15/23 08:51 Glucose (UA)(Auto) 0 mg/dL 08/15/23 08:51 Urine Ketones (Auto) Positive 08/15/23 08:51 Urine Blood (Auto) 0 Crow/uL 08/15/23 08:51 Urine Nitrite (Auto) Negative 08/15/23 08:51 Urine Bilirubin (Auto) 2 mg/dL 08/15/23 08:51 Urine Urobilinogen (Auto) 1 mg/dL 08/15/23 08:51 Leukocyte Esterase (Auto) 15 Zoya/uL 08/15/23 08:51 Assessment & Plan Assessment & Plan (1) Hematospermia: Code(s): R36.1 - Hematospermia Category: Medical Plan In office urinalysis results reviewed with the patient today; as noted above. Discussed at length potential causes of hematospermia. Discussed further treatment options/workup of hematospermia and further interventions. Reassurance provided. Will obtain PSA. Discussed, educated, encouraged on the importance of drinking plenty of water daily. Patient denies any bothersome urinary issues. Patient reports be happy with current voiding parameters. Follow-up in office cystoscopy for further assessment evaluation; or sooner with any issues, concerns, and or questions. Orders: Orders Prostate Specific Antigen Today R36.1 - Hematospermia AMB Urinalysis Automated Today Z13.9 - Encounter for screening, unspecified Patient Instructions: The patient had an opportunity to ask questions regarding the treatment plan. All questions were answered. Physical exam, labs, and imaging were discussed and reviewed in detail. As well as risks, benefits, and discussion of treatment choices. No major barriers to understanding were identified. The patient expressed understanding and agreement with the above treatment plan. The patient was made aware they should contact our office by phone for worsening of their current condition, the appearance of new symptoms, or with any questions or concerns. Compliance is encouraged with any medications and follow up testing that is ordered. It is a privilege to be allowed the opportunity to participate in? your urological care.? Again, if you have any questions or concerns If you have any questions or concerns please do not hesitate to contact me. The office is [phone]. This note is constructed using voice recognition software. While every effort has been made to ensure accuracy return to service inspector errors may have been included. Yours sincerely, TOBIN Squires-YASMIN Coding Level of Care Code Est Pt Level 4 (09051) Diagnoses Hematospermia R36.1 Time Spent (min) 25
== END 2023-08-15 09:11 | disposition home or self-care (01) ==
PROVIDERS: PCP Internal Medicine; Visit Provider Nurse Practitioner Family
DX: R36.1 Hematospermia (principal); Z13.9 Encounter for screening, unspecified
CPT/HCPCS: 99214

== ENCOUNTER → 2023-08-15 08:23 | Outpatient (BNVA) | payer MEDICARE, SELFPAY | PROVIDERS: PCP Internal Medicine; Visit Provider Nurse Practitioner Family | DX: R36.1 Hematospermia (principal) | CPT/HCPCS: 81003; 99212 ==

== ENCOUNTER 2023-09-07 18:45 | Emergency (ER) | payer OTHER, MEDICARE, SELFPAY ==
--- NOTE | ~2023-09-07 | XR_ITS ---
EXAMINATION: XR CHEST CLINICAL INFORMATION: Trauma COMPARISON: X-rays of the chest and left ribs June 2022 TECHNIQUE: 2 views of the chest were obtained. FINDINGS: No significant abnormality is noted involving the heart, lungs, mediastinum, bony thorax or soft tissues. No pneumothorax. No rib fracture or other fracture detected. Incidental note made of plate and screw fixation overlying the lower cervical spine unchanged. XR/XR chest 2V IMPRESSION: No acute disease
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
[2023-09-07 18:48] VITALS: BP 164/100; PULSE 98; RESP 20; TEMP 36.2; O2SAT 93; BMI 28.2
--- NOTE | 2023-09-07 18:52 | ECG_ITS ---
Test Reason : ARRYTHMIA Blood Pressure : / mmHG Vent. Rate : 113 BPM Atrial Rate : 113 BPM P-R Int : 176 ms QRS Dur : 082 ms QT Int : 322 ms P-R-T Axes : 031 032 -17 degrees QTc Int : 441 ms Sinus tachycardia with frequent Premature ventricular complexes Possible Left atrial enlargement T wave abnormality, consider inferior ischemia Abnormal ECG When compared with ECG of 21-AUG-2002 10:24, Vent. rate has increased Premature ventricular complexes are now Present Referred By: Rob Harmon Electronically Signed By:QUINN BRAGG MD
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
[2023-09-07 19:16] LABS: MANUAL DIFF FLAG NO
[2023-09-07 19:17] LABS: Basophils Percent Auto 0.3 % (0-2); Eosinophils Percent Auto 0.6 % (0-4); Hematocrit 43.6 % (42.0-52.0); Imm Gran Abs Auto 0.04 X10*3/uL (0.00-0.03); Imm Gran Pct Auto 0.6 % (0.0-0.4); Lymphocytes Percent Auto 13.7 % (20-40); Mean Corpuscular HGB Conc 34.4 g/dl (31.0-36.0); Mean Corpuscular Hemoglobin 30.4 pg (27.0-33.0); Mean Corpuscular Volume 88.4 fL (80.0-98.0); Mean Platelet Volume 10.6 fL (9.4-12.4); Monocytes Absolute Auto 0.4 X10*3/uL (0.1-1.2); Monocytes Percent Auto 4.9 % (2-11); Neutrophils Absolute Auto 5.7 x10*3/uL (2.0-8.3); Neutrophils Percent Auto 79.9 % (45-73); Platelet Count 153 X10*3/uL (160-400); Red Blood Count 4.93 X10*6/uL (4.60-5.80); Red Cell Distribution Width 13.7 % (11.0-16.0); White Blood Count 7.1 X10*3/uL (4.8-10.8)
[2023-09-07 19:24] LABS: Prothrombin Time 12.3 SEC (11.1-13.3)
[2023-09-07 19:31] LABS: Alanine Aminotransferase 30 U/L (0-40); Albumin Level 4.6 g/dL (3.5-5.0); Alkaline Phosphatase 67 U/L (39-117); Anion Gap 16 (12-20); Aspartate Amino Transferase 21 U/L (5-37); Bilirubin Total 0.9 mg/dL (0.0-1.0); Blood Urea Nitrogen 20 mg/dL (9-16); Calcium 9.9 mg/dL (8.4-10.2); Carbon Dioxide 26 mmol/L (22-29); Chloride 107 mmol/L (96-108); Creatinine Clr Calc Pharmacy 57.1; Estimated Glomerular Filt Rate 55; Glucose Random 118 mg/dL (60-115); Lipase 31 U/L (8-78); Potassium 3.9 mmol/L (3.3-5.1); Sodium 145 mmol/L (135-145); Total Protein 7.1 g/dL (6.5-8.0)
[2023-09-07 19:38] LABS: Troponin-I High Sensitivity 5.6 ng/L (<3.5-35.0)
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
[2023-09-07 20:27] VITALS: BP 129/84; PULSE 101; RESP 17; TEMP 36.7; O2SAT 92
[2023-09-07] MEDS: iohexoL 350 MG/ML 100 ML INFUS..BTL 85 ML IV (21:27)
[2023-09-07 22:52] VITALS: BP 149/87; PULSE 80; RESP 17; TEMP 36.8; O2SAT 94
[2023-09-07 22:53] LABS: Appearance Urine Clear; Color Urine Yellow; Glucose Urine UA Negative (Negative); Leukocyte Esterase Urine Negative (Negative); Nitrite Urine Negative (Negative); Specific Gravity - Urine >= 1.030 (1.005-1.025); Urine Blood Negative (Negative); Urine Ketones 15 mg/dL (Negative); Urine Protein Negative (Neg-Trace)
[2023-09-07 22:56] LABS: Bacteria Urine None Seen (None Seen); Hyaline Casts Urine 0-2 /LPF (0-2); RBC Urine 0-2 /HPF (0-2); Squamous Epithelial Cell Urine 0-2 /HPF (0-2); WBC Urine 0-5 /HPF (0-5)
--- NOTE | 2023-09-07 23:42 | PC.NURSE ---
pt has a lac to his left lower leg, bleeding is controlled. pt is waiting for provider to stitch the lac.
[2023-09-07 23:55] VITALS: BP 144/93; PULSE 72; RESP 16; TEMP 36.2; O2SAT 98
[2023-09-08] MEDS: Lidocaine HCl 1 % MPF 5 ML VIAL SUBCUT (02:53)
[2023-09-08 02:54] VITALS: BP 138/89; PULSE 76; RESP 16; TEMP 36.7; O2SAT 98
== END 2023-09-08 02:55 | disposition home or self-care (01) ==
PROVIDERS: Physician Assistant; Emergency Provider Emergency Medicine Emergency Medical Services; PCP Internal Medicine
DX: S81.812A Laceration without foreign body, left lower leg, initial encounter (principal); S09.90XA Unspecified injury of head, initial encounter; V13.4XXA Pedal cycle driver injured in collision with car, pick-up truck or van in traffic accident, initial encounter; Y93.55 Activity, bike riding; Y92.9 Unspecified place or not applicable; Y99.9 Unspecified external cause status
CPT/HCPCS: 36415; 70450; 71046; 71260; 72125; 73590; 74177; 80053; 81001; 83690; 83735; 84484; 85025; 85610; 86850; 86900; 86901; 93005; 99284; Q9967

== ENCOUNTER → 2023-09-07 18:52 | Outpatient (BNV) | payer OTHER, MEDICARE, SELFPAY | PROVIDERS: Emergency Provider Emergency Medicine Emergency Medical Services; PCP Internal Medicine; Visit Provider Internal Medicine Cardiovascular Disease | DX: R94.31 Abnormal electrocardiogram [ECG] [EKG] (principal) | CPT/HCPCS: 93010 ==

== ENCOUNTER 2023-09-14 12:07 | Outpatient (REF) | payer OTHER, MEDICARE, SELFPAY ==
[2023-09-14 13:49] LABS: Prostate Specific Antigen 1.02 ng/mL (<0.05-4.0)
== END 2023-09-14 12:08 | disposition home or self-care (01) ==
LOC: HO.10HDL 12:07
PROVIDERS: Visit Provider Nurse Practitioner Family
DX: R36.1 Hematospermia (principal); Z12.5 Encounter for screening for malignant neoplasm of prostate
CPT/HCPCS: 36415; 84153

== ENCOUNTER 2023-09-20 08:35 | Outpatient (AMB) | payer MEDICARE, SELFPAY ==
--- NOTE | 2023-09-20 08:46 | MHC.OFFVIS ---
Intake Visit Reasons: 1M Cysto/PSA(Hemospermia) Intake Note: Patient is Present for Cystoscopy Urology Med: None Antibiotic Allergy: None Blood Thinner:None URO- G Disposable Cystoscope lot:[id number] exp: 03/23/2026 Allergies No Known Allergies [No Known Allergies*] Allergy (Verified 09/20/23 08:50) HPI Comments Details: Pieter is a pleasant male. He is a patient with a chronic. He seen for the following urologic conditions - hematospermia Here for cystoscopy Discussed pathology of hematospermia. Prostatic versus urethral versus seminal vesicle origin. 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 Review of Systems Const Denies chills and Denies fever(s) Card Reports no additional complaints and Denies syncope Resp Denies cough GI Denies abdominal pain and Denies heartburn Reports as per HPI and Denies change in libido Neuro Denies syncope Psych Denies change in libido Endo Denies change in libido Physical Exam Const General: cooperative, healthy appearing, comfortable and no acute distress Orientation/consciousness: patient oriented x3 HEENT Face and sinus: Yes normal facial exam Mouth: moist mucous membranes Neck Neck: Yes normal visual inspection, Yes full ROM and Yes trachea midline Chest Chest palpation & inspection: normal inspection of the chest Resp Effort & Inspection: normal respiratory effort, able to speak in complete sentences and no respiratory distress GI Inspection: Yes normal to inspection Back/Spine/Pelvis Cervical Spine: normal cervical lordosis Thoracic/Lumbar Spine: thoracic and lumbar spine normal to inspection Skin General skin exam: no rashes or lesions noted Neuro General: patient oriented x3, gait normal, tone normal and moves all extremities Extrem General: Yes normal to inspection and Yes capillary refill normal Office Procedures Cystoscopy Consent Discussed risk and benefit or proposed procedure with the patient. Information consent for procedure given to the patient. Discussed technical aspects, risks, benefits and alternatives in full. Addressed all of the patient's questions and concerns regarding the procedure. The patient demonstrated knowledge and understanding. They wish to proceed with this procedure. Preparation The patient was prepped in the usual manner. A trenching machine operator was present and in the room. Genitalia was prepped with betadine solution in a sterile manner. Lidocaine Jelly 2% was placed into the urethra and 16Fr flexible Olympus cystoscope was inserted into the meatus after adequate lubrication. Procedure Cystoscopy performed using a disposable Urovue digital 16 [place] cystoscope. Meatus circumcised Urethra anterior posterior urethra normal Prostatic Urethra unremarkable. Inflammation at verumontanum Bladder examination with retroflexion of cystoscope Bladder Orifices normal shape and position Bladder Capacity medium Trabeculations grade 1 Cellule Formation - Diverticulum Formation --- Mucosal Erythema -- Bladder Tumor - 99048-[id number] DISPOSABLE SCOPE URO-G FLEXIBLE SCOPE Procedure code (CPT) selection complete Office Meds lidocaine HCl 2 % mucosal jelly in applicator Performing Provider: Ulysses Story MD Performing Location: [facility] [place] [facility] Administered by: Jean-Paul Roberts LPN on 09/20/23 08:58 Dose Route Admin Location Dispensed Lot Number Expiration Date ND Accounts Payable Analyst 10 mL intra-urethral 10 mL nitrofurantoin monohydrate/macrocrystals 100 mg capsule Performing Provider: Ulysses Story MD Performing Location: [facility] [place] [facility] Administered by: Jean-Paul Roberts LPN on 09/20/23 08:58 Dose Route Admin Location Dispensed Lot Number Expiration Date ND Accounts Payable Analyst 100 mg PO 1 cap naproxen 500 mg tablet Performing Provider: Ulysses Story MD Performing Location: [facility] [place] [facility] Administered by: Jean-Paul Roberts LPN on 09/20/23 08:58 Dose Route Admin Location Dispensed Lot Number Expiration Date ND Accounts Payable Analyst 500 mg PO 1 tab Results AMB Urinalysis, Automated UA Leukoctes 0 Zoya/uL Last Edit by SHAWN Gunter on 09/20/23 08:59 UA Nitrite Negative Last Edit by SHAWN Gunter on 09/20/23 08:59 UA Urobilinogen 0.2 mg/dL Last Edit by SHAWN Gunter on 09/20/23 08:59 UA Protein 30 mg/dL Last Edit by Kaylyn Gaston SHAWN on 09/20/23 08:59 UA pH 5.5 Last Edit by SHAWN Gunter on 09/20/23 08:59 UA Blood 0 Crow/uL Last Edit by Kaylyn Gaston, MEHRDADA on 09/20/23 08:59 UA Specific [place] 1.025 Last Edit by MEHRDAD GunterA on 09/20/23 08:59 UA Ketone Positive Last Edit by Kaylyn Gaston MEHRDADA on 09/20/23 08:59 UA Bilirubin 1 mg/dL Last Edit by Kaylyn Gaston RMA on 09/20/23 08:59 UA Glucose 0 mg/dL Last Edit by Kaylyn Gaston MEHRDADA on 09/20/23 08:59 Assessment & Plan Assessment & Plan (1) Hematospermia: Code(s): R36.1 - Hematospermia Category: Medical Plan Six month follow-up Orders: Orders AMB Urinalysis Automated Today Z13.9 - Encounter for screening, unspecified AMB Cystoscopy Today R36.1 - Hematospermia Medications: New doxycycline hyclate 100 mg PO BID 14 days 28 tabs 0RF N39.0 - Urinary tract infection, site not specified, N45.1 - Epididymitis, R36.1 - Hematospermia Patient Instructions: Imaging studies, laboratory and physical exam results were discussed and reviewed in detail. No major barriers to patient understanding were identified. An opportunity to ask questions regarding the treatment plan was provided. All questions were answered. The patient expressed understanding and agreement with the above treatment plan. The patient is aware they should contact our office by phone for worsening of their current condition or the appearance of new urologic symptoms. Compliance is encouraged with any medications and followup testing that is ordered. It is a privilege to participate in the urologic care of your patient. If you have any questions or concerns regarding treatment for the above conditions, or other urologic issues, please do not hesitate to contact me. The office telephone contact is [phone]. This note is constructed using voice recognition software. While every effort has been made to ensure accuracy jogger operator errors may have been included. Yours sincerely, Dr Ulysses Story MD, [facility] - Urology Providers of Expert, Compassionate Care for the Genitourinary System Coding Level of Care Code Est Pt Level 3 (85260) Diagnoses Hematospermia R36.1 CPT Codes Cystoscopy - CPT: 52248-[id number] ([id number])
--- NOTE | 2023-09-20 09:03 | A.OFFVIS_ITS ---
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 Information consent for procedure given to the patient. Discussed technical aspects, risks, benefits and alternatives in full. Addressed all of the patient's questions and concerns regarding the procedure. The patient demonstrated knowledge and understanding. They wish to proceed with this procedure. Preparation The patient was prepped in the usual manner. A manager of procurement was present and in the room. Genitalia was prepped with betadine solution in a sterile manner. Lidocaine Jelly 2% was placed into the urethra and 16Fr flexible Olympus cystoscope was inserted into the meatus after adequate lubrication. Procedure Cystoscopy performed using a disposable Urovue digital 16 [place] cystoscope. Meatus circumcised Urethra anterior posterior urethra normal Prostatic Urethra unremarkable. Inflammation at verumontanum Bladder examination with retroflexion of cystoscope Bladder Orifices normal shape and position Bladder Capacity medium Trabeculations grade 1 Cellule Formation - Diverticulum Formation --- Mucosal Erythema -- Bladder Tumor - 71275-Johsjijpsu DISPOSABLE SCOPE URO-G FLEXIBLE SCOPE Procedure code (CPT) selection complete Office Meds lidocaine HCl 2 % mucosal jelly in applicator Performing Provider: Ulysses Story MD Performing Location: [facility] [place] [facility] Administered by: Jean-Paul Roberts LPN on 09/20/23 08:58 Dose Route Admin Location Dispensed Lot Number Expiration Date [facility] Rim Fire Priming Operator 10 mL intra-urethral 10 mL nitrofurantoin monohydrate/macrocrystals 100 mg capsule Performing Provider: Ulysses Story MD Performing Location: [facility] Administered by: Jean-Paul Roberts LPN on 09/20/23 08:58 Dose Route Admin Location Dispensed Lot Number Expiration Date [facility] Rim Fire Priming Operator 100 mg PO 1 cap naproxen 500 mg tablet Performing Provider: Ulysses Story MD [facility]forming [facility] Administered by: Jean-Paul Roberts LPN on 09/20/23 08:58 Dose Route Admin Location Dispensed Lot Number Expiration Date [employer] Rim Fire Priming Operator 500 mg PO 1 tab Results AMB Urinalysis, Automated UA Leukoctes 0 Zoya/uL Last Edit by SHAWN Gunter on 09/20/23 08:59 UA Nitrite Negative Last Edit by Kaylyn Gaston Luis F on 09/20/23 08:59 UA Urobilinogen 0.2 mg/dL Last Edit by Kaylyn Gaston A on 09/20/23 08:5 9 UA Protein 30 mg/dL Last Edit by Kaylyn Gaston Luis F on 09/20/23 08:59 UA pH 5.5 Last Edit by Kaylyn Gaston A on 09/20/23 08:59 UA Blood 0 Crow/uL Last Edit by Kaylyn Gaston Luis F on 09/20/23 08:59 UA Specific [place] 1.025 Last Edit by Kaylyn Gaston A on 09/20/23 08: 59 UA Ketone Positive Last Edit by Kaylyn Gaston A on 09/20/23 08:59 UA Bilirubin 1 mg/dL Last Edit by Kaylyn Gaston A on 09/20/23 08:59 UA Glucose 0 mg/dL Last Edit by Kaylyn Gasotn A on 09/20/23 08:59 Results Reviewed Results Reviewed: Laboratory Last Values Urine pH (Auto) 5.5 09/20/23 08:51 Specific [place] (Auto) 1.025 09/20/23 08:51 Urine Protein (Auto) 30 mg/dL 09/20/23 08:51 Glucose (UA)(Auto) 0 mg/dL 09/20/23 08:51 Urine Ketones (Auto) Positive 09/20/23 08:51 Urine Blood (Auto) 0 Crow/uL 09/20/23 08:51 Urine Nitrite (Auto) Negative 09/20/23 08:51 Urine Bilirubin (Auto) 1 mg/dL 09/20/23 08:51 Urine Urobilinogen (Auto) 0.2 mg/dL 09/20/23 08:51 Leukocyte Esterase (Auto) 0 Zoya/uL 09/20/23 08:51 Assessment & Plan Assessment & Plan Orders: Orders AMB Urinalysis Automated Today Z13.9 - Encounter for screening, unspecified AMB Cystoscopy Today R36.1 - Hematospermia Medications: New doxycycline hyclate 100 mg PO BID 28 tabs 0RF 14 days N39.0 - Urinary tract infection, site not specified, N45.1 - Epididymitis, R36.1 - Hematospermia Coding CPT Codes Cystoscopy - CPT: 34205-[id number] ([id number])
== END 2023-09-20 09:24 | disposition home or self-care (01) ==
PROVIDERS: PCP Internal Medicine; Visit Provider Urology
DX: R36.1 Hematospermia (principal); Z13.9 Encounter for screening, unspecified
CPT/HCPCS: 52000

== ENCOUNTER → 2023-09-20 08:35 | Outpatient (BNVA) | payer MEDICARE, SELFPAY | PROVIDERS: PCP Internal Medicine; Visit Provider Urology | DX: R36.1 Hematospermia (principal) | CPT/HCPCS: 52000; 81003 ==

== ENCOUNTER 2023-11-09 17:47 | Outpatient (REF) | payer MEDICARE, SELFPAY ==
[2023-11-09 19:07] LABS: Influenza A PCR NEGATIVE (Negative); Influenza B PCR NEGATIVE (Negative); Resp Syncy Virus RNA Qual PCR NEGATIVE (Negative); SARS COV2 PCR INHOUSE NEGATIVE (Negative)
== END 2023-11-09 17:48 | disposition home or self-care (01) ==
LOC: HO.LNP 17:47
PROVIDERS: Visit Provider Internal Medicine
DX: R05.9 Cough, unspecified (principal); R06.2 Wheezing
CPT/HCPCS: 0241U

== ENCOUNTER 2023-12-19 12:31 | Outpatient (REF) | payer MEDICARE, SELFPAY ==
[2023-12-19 13:22] LABS: Appearance Urine Clear; Color Urine Yellow; Glucose Urine UA Negative (Negative); Leukocyte Esterase Urine Negative (Negative); Nitrite Urine Negative (Negative); PH 5.5 (5.0-9.0); Urine Blood Negative (Negative); Urine Ketones Trace mg/dL (Negative); Urine Protein Negative (Neg-Trace)
[2023-12-19 13:29] LABS: MANUAL DIFF FLAG NO
[2023-12-19 13:45] LABS: Basophils Percent Auto 0.3 % (0-2); Eosinophils Absolute Auto 0.1 X10*3/uL (0.0-0.4); Hematocrit 43.4 % (42.0-52.0); Hemoglobin 14.6 g/dl (14.0-18.0); Imm Gran Abs Auto 0.05 X10*3/uL (0.00-0.03); Imm Gran Pct Auto 0.8 % (0.0-0.4); Lymphocytes Absolute Auto 1.1 X10*3/uL (1.2-4.9); Lymphocytes Percent Auto 17.1 % (20-40); Mean Corpuscular HGB Conc 33.6 g/dl (31.0-36.0); Mean Corpuscular Hemoglobin 30.2 pg (27.0-33.0); Mean Corpuscular Volume 89.7 fL (80.0-98.0); Mean Platelet Volume 10.8 fL (9.4-12.4); Monocytes Absolute Auto 0.6 X10*3/uL (0.1-1.2); Monocytes Percent Auto 8.8 % (2-11); Neutrophils Absolute Auto 4.5 x10*3/uL (2.0-8.3); Platelet Count 168 X10*3/uL (160-400); Red Blood Count 4.84 X10*6/uL (4.60-5.80); Red Cell Distribution Width 13.4 % (11.0-16.0); White Blood Count 6.4 X10*3/uL (4.8-10.8)
[2023-12-19 14:13] LABS: Alanine Aminotransferase 51 U/L (0-40); Albumin Level 4.2 g/dL (3.5-5.0); Alkaline Phosphatase 72 U/L (39-117); Anion Gap 11 (12-20); Aspartate Amino Transferase 32 U/L (5-37); Blood Urea Nitrogen 19 mg/dL (9-16); Calcium 9.3 mg/dL (8.4-10.2); Carbon Dioxide 27 mmol/L (22-29); Chloride 107 mmol/L (96-108); Cholesterol 144 mg/dL (<200); Estimated Glomerular Filt Rate > 60; Glucose Fasting 102 mg/dL (60-99); HDL Cholesterol 39 mg/dL (>40); LDL Cholesterol Calculated 72 mg/dL (<100); Potassium 3.9 mmol/L (3.3-5.1); Sodium 141 mmol/L (135-145); Total Protein 7.2 g/dL (6.5-8.0); Triglycerides 167 mg/dL (<150)
[2023-12-19 14:29] LABS: Prostate Specific Antigen Scr 1.21 ng/mL (<0.05-4.0)
== END 2023-12-19 12:32 | disposition home or self-care (01) ==
LOC: HO.10HDL 12:31
PROVIDERS: Visit Provider Internal Medicine
DX: E78.00 Pure hypercholesterolemia, unspecified (principal); K21.9 Gastro-esophageal reflux disease without esophagitis; Z12.5 Encounter for screening for malignant neoplasm of prostate; R35.1 Nocturia
CPT/HCPCS: 36415; 80053; 80061; 81003; 84153; 85025

== ENCOUNTER 2024-01-09 09:17 | Outpatient (AMB) | payer MEDICARE, SELFPAY ==
--- NOTE | 2024-01-09 09:29 | A.OFFVIS_ITS ---
Intake Visit Reasons: OV - left knee OA, last inj 06/09/23 Intake Note: Pieter is a 68 year old male who presents today for a repeat left knee injection. His last injection was done on 06/09/23. He reports his last injection gave him relief and would like to repeat. Allergies No Known Allergies [No Known Allergies*] Allergy (Verified 09/20/23 08:50) HPI HPI OV - left knee OA, last inj 06/09/23: Details: 68-year-old male who presents in the office today follow-up of left knee osteoarthritis. I last saw the patient in the office on 06/09/23, when he was given a cortisone injection in the left knee. While in the office today, the patient reports his last cortisone injection provided with relief. He would like to have a repeat injection today. 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 No ecchymosis, erythema, or joint effusion. No tenderness to palpation to the medial or lateral joint lines. Full knee extension and flexion. Crepitus felt with ROM. Negative Patsy's. Negative anterior draw. NVI. Psych Mental Status: mental status grossly normal Office Procedures AMB Joint Injection/Aspiration Joint Injection/Aspiration Primary Site: left knee Prep: site was prepped using aseptic technique, ethochloride spray was applied and injection warnings given Injected: 80 mg of, DepoMedrol, with 8 mL of (2% plain lido ) and in the joint Approach Used: anterolateral Procedure: The patient tolerated the procedure well, but had some pain with the injection and there was some relief with the local anesthesia Coding 38773 - Large joint Procedure code (CPT) selection complete Assessment & Plan Assessment & Plan (1) Primary osteoarthritis of left knee: Code(s): M17.12 - Unilateral primary osteoarthritis, left knee Category: Medical Plan Mr. Hunter is a 68-year-old male who presents in the office today follow-up of left knee osteoarthritis. I last saw the patient in the office on 06/09/23, when he was given a cortisone injection in the left knee. While in the office today, the patient reports his last cortisone injection provided with relief. He would like to have a repeat injection today. The patient was offered a cortisone injection in the left knee with 80 mg of DepoMedrol. The patient was explained the risks, benefits, and alternatives to receiving this injection. After receiving consent for the injection, the patient had the procedure done while in the office today. The patient tolerated the procedure well with no complications. Follow up will be PRN, or sooner if needed. Follow-up will be PRN, or sooner if needed. Patient Instructions: Scribed by Naina Banda medical office secretary, for Kimberly York PA-C on 01/09/2024 at 9:45 am EST. Coding Level of Care Code Est Pt Level 3 (01473) Diagnoses Primary osteoarthritis of left knee M17.12 CPT Codes Coding - 10095 Large joint: 43849 - Large joint ([id number])
== END 2024-01-09 09:55 | disposition home or self-care (01) ==
PROVIDERS: PCP Internal Medicine; Visit Provider Physician Assistant
DX: M17.12 Unilateral primary osteoarthritis, left knee (principal)
CPT/HCPCS: 20610; 99213

== ENCOUNTER → 2024-01-09 09:17 | Outpatient (BNVA) | payer MEDICARE, SELFPAY | PROVIDERS: PCP Internal Medicine; Visit Provider Physician Assistant | DX: M17.12 Unilateral primary osteoarthritis, left knee (principal) | CPT/HCPCS: 20610; 99212; J1010; J2003 ==

== ENCOUNTER 2024-02-16 14:14 | Emergency (ER) | payer OTHER, SELFPAY ==
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
[2024-02-16 14:35] VITALS: BP 170/100; PULSE 104; O2SAT 97
[2024-02-16 15:21] VITALS: BP 150/100; PULSE 95; RESP 18; TEMP 36.8; O2SAT 93; BMI 29.8
--- OUTSIDE RECORDS SUMMARY | 2024-02-16 15:24 | XMS_ITS | Patient Health Record ---
[facility] Address [address] [place] [address] Care Team Providers Care Director Multimedia Name Role Phone Remi Oviedo MD Primary Care Provider Unavaila Cal Casillas Unavailable [phone] Allergies No Known Allergies Reason For Referral No Information Medications Medication SIG (Take, Route, Frequency, Duration) Notes Start Date End Date Status Atorvastatin Calcium 20 MG 1 tablet Oral ly Once a day for 30 day(s) Active Carisoprodol 350 MG 1 tablet as needed O rally Twice a day Active Diclofenac Active Immunizations Vaccine Route Administration Date Status Comme nts COVID-19 Pfizer BioNTech Vaccine Unknown 01/19/2021 Administered First Dose: 04/27/2020 2nd dose: 05/18/2020 Social History Tobacco Use: Social History Observation Description Date Details (start date - stop date) Never Smoker NA - NA Tobacco Use/Smoking Question Answer Notes Are you a: nonsmoker Additional Findings: Tobacco Non-User Aggressive non-smoker Alcohol Screen Question Answer Notes Did you have a drink contain ing alcohol in the past year? Yes How often did you have a dri nk containing alcohol in the past year? 2 to 4 times a month (2 points) Points 2 Interpretation Negative Tobacco use other than smoking: Question Answer Notes Are you an other tobacco user? No Problems Problem Type SNOMED Code ICD Code Onset Dates Problem Status W/U Status Risk Notes Problem Plantar fascial fibromatosis (75227026) Plantar fascial fibromatosis (M72.2) Active confirmed Problem Plantar wart (03682596) Plantar wart (B07.0) Active confirmed Plan Of Treatment Pending Test Test Name Order Date X ray : Foot, left 3V 03/24/2021 X ray : Foot, left 3V 04/21/2021 [id number] Destruction, 1-14 06/23/2020 37711, [id number]/INJECT, JOINT/BURSA 0 04/21/2021 Insurance Providers Payer Name Payer Address Payer Phone Subscriber Number Group Number Insured Name Patient Relationship to Insured Coverage Start Date Coverage End Date [facility] [address] [facility] [place] [id number] Hayde Hunter Spouse - patient is the spouse of the insured Medical (General) History Medical History History ICD Code Back,Hip,and Knee pain CAD (Cholesterol) Cataracts Warts Surgical History Surgery Date(Month/Year) knee surgery 2019 neck surgery
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
[2024-02-16] MEDS: Ibuprofen 400 MG TABLET PO (16:29)
[2024-02-16] MEDS: Acetaminophen 325 MG TABLET 975 MG PO (16:29)
[2024-02-16 16:34] VITALS: BP 152/103; PULSE 65; RESP 17; TEMP 36.4; O2SAT 94
[2024-02-16 18:25] VITALS: BP 152/103; PULSE 65; RESP 17; TEMP 36.4; O2SAT 94
== END 2024-02-16 18:25 | disposition home or self-care (01) ==
PROVIDERS: Emergency Provider Emergency Medicine; PCP Internal Medicine
DX: S13.4XXA Sprain of ligaments of cervical spine, initial encounter (principal); M54.2 Cervicalgia; R51.9 Headache, unspecified; V43.52XA Car driver injured in collision with other type car in traffic accident, initial encounter; Y93.89 Activity, other specified; Y92.488 Other paved roadways as the place of occurrence of the external cause; Y99.8 Other external cause status; Z79.899 Other long term (current) drug therapy
CPT/HCPCS: 70450; 72125; 99283; 99284

== ENCOUNTER → 2024-02-16 14:37 | Outpatient (BNV) | payer MEDICARE, SELFPAY | PROVIDERS: Emergency Provider Emergency Medicine; PCP Internal Medicine; Visit Provider Radiology Diagnostic Radiology | DX: I67.2 Cerebral atherosclerosis (principal); S09.90XA Unspecified injury of head, initial encounter; M50.30 Other cervical disc degeneration, unspecified cervical region | CPT/HCPCS: 70450; 72125 ==

== ENCOUNTER 2024-03-21 14:15 | Outpatient (AMB) | payer MEDICARE, SELFPAY ==
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
--- OUTSIDE RECORDS SUMMARY | 2024-03-21 18:04 | XMS_ITS | Patient Health Record ---
Author Organization [facility] Address [address] [place] [address] Care Team Providers Care Fur Glosser Name Role Phone Remi Oviedo MD Primary Care Provider Unavaila Cal Casillas Unavailable [phone] Allergies No Known Allergies Reason For Referral [...] Status Risk Notes Problem Plantar fascial fibromatosis (79846412) Plantar fascial fibromatosis (M72.2) Active confirmed Problem Plantar wart (94346712) Plantar wart (B07.0) Active confirmed Plan Of Treatment Pending Test Test Name Order Date X ray : Foot, left 3V 03/24/2021 X ray : Foot, left 3V 04/21/2021 [id number] Destruction, 1-14 06/23/2020 35855, [id number]/INJECT, JOINT/BURSA 0 04/21/2021 Insurance Providers Payer Name Payer Address Payer Phone Subscriber Number Group Number Insured Name Patient Relationship to Insured Coverage Start Date Coverage End Date [facility] [address] [facility] [place] [id number] Hayde Hunter Spouse - patient is the spouse of the insured Medical (General) History Medical History History ICD Code Back,Hip,and Knee pain CAD (Cholesterol) Cataracts Warts Surgical History Surgery Date(Month/Year) knee surgery 2019 neck surgery
== END 2024-03-21 15:12 | disposition home or self-care (01) ==
PROVIDERS: PCP Internal Medicine; Visit Provider Nurse Practitioner Family
DX: R39.15 Urgency of urination (principal); R35.0 Frequency of micturition; R36.1 Hematospermia; Z13.9 Encounter for screening, unspecified
CPT/HCPCS: 99214; G2211

== ENCOUNTER → 2024-03-21 14:15 | Outpatient (BNVA) | payer MEDICARE, SELFPAY | PROVIDERS: PCP Internal Medicine; Visit Provider Nurse Practitioner Family | DX: R39.15 Urgency of urination (principal); R35.0 Frequency of micturition; R36.1 Hematospermia | CPT/HCPCS: 81003; 99212 ==

== ENCOUNTER 2024-05-06 08:06 | Outpatient (AMB) | payer MEDICARE, SELFPAY ==
--- NOTE | 2024-05-06 08:13 | A.OFFVIS_ITS ---
Intake Visit Reasons: Inj-left knee OA, last inj 01/09/24 Intake Note: Pieter is a 69 year old male who presents today for a follow up visit and injection for his left knee OA. Patient's last left knee injection was on 01/09/24 has offered relief, however not as much as before. He would like to repeat this injection today. Allergies No Known Allergies [No Known Allergies*] Allergy (Verified 05/06/24 08:25) HPI HPI Inj-left knee OA, last inj 01/09/24: Details: Mr. Hunter is a 69-year-old male who presents to the office today for follow-up of left knee osteoarthritis. His last cortisone injection was on and gave him roughly 3 months of relief. He is looking to repeat injection. 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 No ecchymosis, erythema, or joint effusion. No tenderness to palpation to the medial or lateral joint lines. Full knee extension and flexion. Crepitus felt with ROM. Negative Patsy's. Negative anterior draw. NVI. Psych Mental Status: mental status grossly normal Office Procedures AMB Joint Injection/Aspiration Joint Injection/Aspiration Primary Site: left knee Prep: site was prepped using aseptic technique, ethochloride spray was applied and injection warnings given Injected: 80 mg of, DepoMedrol, with 8 mL of (2% plain lidocaine) and in the joint Approach Used: anterolateral Procedure: The patient tolerated the procedure well, but had some pain with the injection and there was some relief with the local anesthesia Coding - Large joint Procedure code (CPT) selection complete Assessment & Plan Assessment & Plan (1) Primary osteoarthritis of left knee: Code(s): M17.12 - Unilateral primary osteoarthritis, left knee Category: Medical Plan Mr. Hunter is a 69-year-old male who presents to the office today for follow-up of left knee osteoarthritis. His last cortisone injection was on and gave him roughly 3 months of relief. He is looking to repeat injection. The patient was offered a cortisone injection in the left knee with 80 mg of DepoMedrol. The patient was explained the risks, benefits, and alternatives to receiving this injection. After receiving consent for the injection, the patient had the procedure done while in the office today. The patient tolerated the procedure well with no complications. While in the office today, we briefly discussed the role of total knee arthroplasty. Patient would like to continue with cortisone injections at this time but should he wish to move forward with total knee arthroplasty I would be happy to have a more in-depth discussion with him. Follow-up will be p.r.n., or sooner if needed Coding Level of Care Code Est Pt Level 4 (96512) Diagnoses Primary osteoarthritis of left knee M17.12 CPT Codes Coding - Large joint: 04536 - Large joint ([id number])
--- OUTSIDE RECORDS SUMMARY | 2024-05-06 08:13 | XMS_ITS | Patient Health Record ---
Author Organization [facility] Address [address] [place] [place] [address] Care Team Providers Care Oyster Farmer Name Role Phone Remi Oviedo MD Primary Care Provider Unavaila Cal Casillas Unavailable [phone] Allergies No Known Allergies Reason For Referral [...] Status Risk Notes Problem Plantar fascial fibromatosis (80860189) Plantar fascial fibromatosis (M72.2) Active confirmed Problem Plantar wart (42127131) Plantar wart (B07.0) Active confirmed Plan Of Treatment Pending Test Test Name Order Date X ray : Foot, left 3V 03/24/2021 X ray : Foot, left 3V 04/21/2021 [id number] Destruction, 1-14 06/23/2020 47532, [id number]/INJECT, JOINT/BURSA 0 04/21/2021 Insurance Providers Payer Name Payer Address Payer Phone Subscriber Number Group Number Insured Name Patient Relationship to Insured Coverage Start Date Coverage End Date [facility] [address] [facility] [place] [phone] [id number] Hayde Hunter Spouse - patient is the spouse of the insured Medical (General) History Medical History History ICD Code Back,Hip,and Knee pain CAD (Cholesterol) Cataracts Warts Surgical History Surgery Date(Month/Year) knee surgery 2019 neck surgery
== END 2024-05-06 08:25 | disposition home or self-care (01) ==
LOC: HO.HOS 08:06
PROVIDERS: PCP Internal Medicine; Visit Provider Physician Assistant
DX: M17.12 Unilateral primary osteoarthritis, left knee (principal)
CPT/HCPCS: 20610; 99214

== ENCOUNTER → 2024-05-06 08:06 | Outpatient (BNVA) | payer MEDICARE, SELFPAY | PROVIDERS: PCP Internal Medicine; Visit Provider Physician Assistant | DX: M17.12 Unilateral primary osteoarthritis, left knee (principal) | CPT/HCPCS: 20610; 99212; J1010; J2003 ==

== ENCOUNTER 2024-05-23 08:09 | Outpatient (AMB) | payer MEDICARE, SELFPAY ==
--- OUTSIDE RECORDS SUMMARY | 2024-05-23 08:14 | XMS_ITS | Patient Health Record ---
[facility] Address [address] [place] [address] Care Team Providers Care Last Scourer Name Role Phone Remi Oviedo MD Primary Care Provider Unavaila Cal Casillas Unavailable [phone] Allergies No Known Allergies Reason For Referral [...] Status Risk Notes Problem Plantar fascial fibromatosis (37329882) Plantar fascial fibromatosis (M72.2) Active confirmed Problem Plantar wart (64505622) Plantar wart (B07.0) Active confirmed Plan Of Treatment Pending Test Test Name Order Date X ray : Foot, left 3V 03/24/2021 X ray : Foot, left 3V 04/21/2021 [id number] Destruction, 1-14 06/23/2020 82645, [id number]/INJECT, JOINT/BURSA 0 04/21/2021 Insurance Providers Payer Name Payer Address Payer Phone Subscriber Number Group Number Insured Name Patient Relationship to Insured Coverage Start Date Coverage End Date [facility] [address] [facility] [place] [address] [id number] Hayde Hunter Spouse - patient is the spouse of the insured Medical (General) History Medical History History ICD Code Back,Hip,and Knee pain CAD (Cholesterol) Cataracts Warts Surgical History Surgery Date(Month/Year) knee surgery 2019 neck surgery
--- NOTE | 2024-05-23 08:19 | AM.OFFWIN_ITS ---
Intake Vital Signs 05/23/24 08:20 Weight 196 lb BP 160/100 H Blood Pressure Location Rt brachial Position Sitting Pulse 79 Pulse Source Pulse Oximeter Pulse Oximetry (%) 100 Oxygen Delivery Method Room Air Intake Visit Reasons: EP-High BP- 187 over 122 Intake Note: Patient here for elevated BP for a while now. Patient Tobacco Use Status: Never used Tobacco Allergies No Known Allergies [No Known Allergies*] Allergy (Verified 05/23/24 08:21) Do you need a note to return to daycare/school/sports/work: No HPI HPI Comments History of Present Illness Details 69 y/o male patient who presents to the walk in clinic with c/o Elevated Blood pressure readings at home for awhile now. Pt has been monitoring his BP at home for 2 weeks. Last year he was told his Blood Pressure was elev ated and needed to make lifestyle changes. Denies headaches, but endorses Dizziness in the morning. Denies CP, Palpitations, SOB or vision changes. 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 Review of Systems Const All systems reviewed & are unremarkable except as noted in HPI and below Physical Exam Vital Signs: Last Vital Signs Pulse 79 05/23/24 08:20 BP 160/100 H 05/23/24 08:20 Pulse Ox 100 05/23/24 08:20 Oxygen Delivery Method Room Air 05/23/24 08:20 Const General: cooperative and no acute distress Nutritional Appearance: overweight Orientation/consciousness: patient oriented x3 Resp Effort & Inspection: normal respiratory effort and able to speak in complete sentences Auscultation: clear to auscultation bilaterally Cardio Rhythm: regular rhythm Heart sounds: S1 normal heart sound present and S2 normal heart sound present Neuro General: patient oriented x3 Psych Speech and movement: Normal speech and movement present Assessment & Plan Assessment & Plan (1) Essential hypertension: Code(s): I10 - Essential (primary) hypertension Plan: Ordered Losartan 25 mg Once Daily. Educated on Lifestyle changes; Low salt diet, weight loss, exercise Will schedule 2 weeks F/U with Navigator for BP check. Medications: New losartan 25 mg PO DAILY 30 tabs 0RF I10 - Essential (primary) hypertension Coding Level of Care Code Est Pt Level 4 (95527) Diagnoses Essential hypertension I10 Time Spent (min) 20
[2024-05-23 08:20] VITALS: BP 160/100; PULSE 79; O2SAT 100
== END 2024-05-23 08:58 | disposition home or self-care (01) ==
PROVIDERS: PCP Internal Medicine; Visit Provider Nurse Practitioner Family
DX: I10 Essential (primary) hypertension (principal)

== ENCOUNTER → 2024-05-23 08:09 | Outpatient (BNVA) | payer MEDICARE, SELFPAY | PROVIDERS: PCP Internal Medicine; Visit Provider Nurse Practitioner Family | DX: I10 Essential (primary) hypertension (principal) | CPT/HCPCS: 99212 ==

== ENCOUNTER 2024-06-06 12:47 | Outpatient (REF) | payer MEDICARE, SELFPAY ==
[2024-06-06 14:21] LABS: Prostate Specific Antigen 1.15 ng/mL (<0.05-4.0)
--- OUTSIDE RECORDS SUMMARY | 2024-06-06 15:32 | XMS_ITS | Patient Health Record ---
[facility] Address [address] [place] [address] Care Team Providers Care Counter Waiter Name Role Phone Remi Oviedo MD Primary Care Provider Unavaila Cal Casillas Unavailable [phone] Allergies No Known Allergies Reason For Referral [...] Status Risk Notes Problem Plantar fascial fibromatosis (84518515) Plantar fascial fibromatosis (M72.2) Active confirmed Problem Plantar wart (89687987) Plantar wart (B07.0) Active confirmed Plan Of Treatment Pending Test Test Name Order Date X ray : Foot, left 3V 03/24/2021 X ray : Foot, left 3V 04/21/2021 [id number] Destruction, 1-14 06/23/2020 87670, [id number]/INJECT, JOINT/BURSA 0 04/21/2021 Insurance Providers Payer Name Payer Address Payer Phone Subscriber Number Group Number Insured Name Patient Relationship to Insured Coverage Start Date Coverage End Date [facility] [address] [facility] [place] [address] [id number] Hayde Hunter Spouse - patient is the spouse of the insured Medical (General) History Medical History History ICD Code Back,Hip,and Knee pain CAD (Cholesterol) Cataracts Warts Surgical History Surgery Date(Month/Year) knee surgery 2019 neck surgery
== END 2024-06-06 12:48 | disposition home or self-care (01) ==
LOC: HO.10HDL 12:47
PROVIDERS: Visit Provider Nurse Practitioner Family
DX: Z12.5 Encounter for screening for malignant neoplasm of prostate (principal); R35.0 Frequency of micturition; R39.15 Urgency of urination
CPT/HCPCS: 36415; 84153

== ENCOUNTER 2024-06-12 12:50 | Outpatient (REF) | payer MEDICARE, SELFPAY ==
--- NOTE | ~2024-06-12 | US_ITS ---
CLINICAL HISTORY: R39.15 - Urgency of urination US retroperitoneum with color Doppler Comparison: None Findings: Right kidney normal size and echotexture, 12.0 cm length. No hydronephrosis. Normal color flow. No nephrolithiasis. Benign exophytic cyst upper pole measuring 5.2 x 4.2 x 4.2 cm. Left kidney normal size and echotexture, 11.4 cm in length. No hydronephrosis. Normal color flow. No nephrolithiasis. Benign renal cortical cysts midpole measuring 1.7 x 2.2 x 1.7 cm and upper pole measuring 1.4 x 1.5 x 1.4 cm. Urinary bladder is unremarkable. Prevoid volume 277.0 mL. Postvoid volume 14.3 mL. Ureteral jets are visualized bilaterally Prostate measures 2.6 x 3.3 x 3.9 cm. Impression: 1. Kidneys normal size and position with normal cortical width and echotexture. No nephrolithiasis or evidence of obstructive uropathy. Incidental simple renal cortical cysts bilaterally. 2. Slightly elevated postvoid residual 3. Prostate volume 18.4 mL This document has been electronically signed by: Ilia Knapp MD on 06/14/2024 08:33:22
--- OUTSIDE RECORDS SUMMARY | 2024-06-12 15:07 | XMS_ITS | Patient Health Record ---
Author Organization [facility] Address [address] [place] [address] Care Team Providers Care Pillar Worker Name Role Phone Remi Oviedo MD Primary Care Provider Unavaila Cal Casillas Unavailable [phone] Allergies No Known Allergies Reason For Referral [...] Status Risk Notes Problem Plantar fascial fibromatosis (88090408) Plantar fascial fibromatosis (M72.2) Active confirmed Problem Plantar wart (67818020) Plantar wart (B07.0) Active confirmed Plan Of Treatment Pending Test Test Name Order Date X ray : Foot, left 3V 03/24/2021 X ray : Foot, left 3V 04/21/2021 [id number] Destruction, 1-14 06/23/2020 91411, [id number]/INJECT, JOINT/BURSA 0 04/21/2021 Insurance Providers Payer Name Payer Address Payer Phone Subscriber Number Group Number Insured Name Patient Relationship to Insured Coverage Start Date Coverage End Date [facility] [address] [facility] [place] [id number] Hayde Hunter Spouse - patient is the spouse of the insured Medical (General) History Medical History History ICD Code Back,Hip,and Knee pain CAD (Cholesterol) Cataracts Warts Surgical History Surgery Date(Month/Year) knee surgery 2019 neck surgery
== END 2024-06-12 12:51 | disposition home or self-care (01) ==
LOC: HO.US 12:50
PROVIDERS: PCP Internal Medicine; Visit Provider Nurse Practitioner Family
DX: R39.15 Urgency of urination (principal); R35.0 Frequency of micturition
CPT/HCPCS: 76770

== ENCOUNTER → 2024-06-12 12:52 | Outpatient (BNV) | payer MEDICARE, SELFPAY | PROVIDERS: PCP Internal Medicine; Visit Provider Radiology Diagnostic Radiology | DX: N28.1 Cyst of kidney, acquired (principal); R39.14 Feeling of incomplete bladder emptying | CPT/HCPCS: 76770 ==

== ENCOUNTER 2024-06-18 07:35 | Outpatient (AMB) | payer MEDICARE, SELFPAY ==
--- OUTSIDE RECORDS SUMMARY | 2024-06-18 07:37 | XMS_ITS | Patient Health Record ---
[facility] Address [address] [place] [address] Care Team Providers Care Forge Tender Name Role Phone Remi Oviedo MD Primary Care Provider Unavaila Cal Casillas Unavailable [phone] Allergies No Known Allergies Reason For Referral [...] Status Risk Notes Problem Plantar fascial fibromatosis (12597600) Plantar fascial fibromatosis (M72.2) Active confirmed Problem Plantar wart (48566757) Plantar wart (B07.0) Active confirmed Plan Of Treatment Pending Test Test Name Order Date X ray : Foot, left 3V 03/24/2021 X ray : Foot, left 3V 04/21/2021 [id number] Destruction, 1-14 06/23/2020 24674, [id number]/INJECT, JOINT/BURSA 0 04/21/2021 Insurance Providers Payer Name Payer Address Payer Phone Subscriber Number Group Number Insured Name Patient Relationship to Insured Coverage Start Date Coverage End Date [facility] [address] [facility] [place] [address] [id number] Hayde Hunter Spouse - patient is the spouse of the insured Medical (General) History Medical History History ICD Code Back,Hip,and Knee pain CAD (Cholesterol) Cataracts Warts Surgical History Surgery Date(Month/Year) knee surgery 2019 neck surgery
--- NOTE | 2024-06-18 07:42 | A.OFFVIS_ITS ---
Intake Visit Reasons: 3 month follow up/ US/ PSA(set) Intake Note: Patient presents today for follow up on: urgency, frequency, hematospermia, ultrasound and lab results Imaging Completed: 06/12/24 PSA: 1.15 Urology Medications: none Blood Thinner: none PVR: 13ml's Plaster Die Maker Required: No Accompanied by: Self / Same As Patient Allergies No Known Allergies [No Known Allergies*] Allergy (Verified 06/18/24 09:36) Medication List - Last Reconciled 06/18/24 by ELIZABETH Squires atorvastatin 20 mg PO DAILY cyclobenzaprine 10 mg PO BID diclofenac sodium 75 mg PO BID lisinopril 20 mg PO DAILY HPI Comments Details: Pieter is a very pleasant 69-year-old male patient of Dr. Oviedo. He has a past medical history of hypercholesteremia. He presents to the office today for follow-up of his hematospermia. In discussion with the patient today he continues to report episodes of hematospermia however describes feeling semen has been with more of a brown discoloration as previously he felt it was more reddened. Previous workup has included and in office cystoscopy 09/[address] Story noting a degree of inflammation around the verumontanum which was noted to be consistent with patient's symptoms. At that time patient was given 2 weeks doxycycline and patient had reported improvement. However upon discussions with the patient today he reports feeling no improvement status post completion of doxycycline. We discussed at length potential causes of hematospermia. Recent PSA results as well as retroperitoneal ultrasound results were reviewed with the patient today. 06/14 bilateral kidneys with no hydronephrosis or renal calculi. Incidental simple renal cysts noted bilaterally. Prostate volume of 18 mL per radiology report. PSAs are as follows: PSAs: 11/10 0.6, 11/11 0.6, 11/12 0.9, 09/12 1.0, 12/13 1.2, 06/14 1.2 We discussed further intervention to include transrectal ultrasound verses repeat in office cystoscopy verses semen culture and or pelvic MRI. Risks and benefits of these interventions were discussed at length. He otherwise denies any bothersome urinary issues or concerns. He denies incontinence, nocturia, hematuria, dysuria, foul smelling urine, changes to urinary stream, flank pain, fever, and or chills. In office urinalysis results reviewed with the patient today. PVR 0 mL. Plan The approach for the persistent hematospermia will be conservative due to its self-limiting nature and lack of indications from prior comprehensive investigations. The patient will be under observation and instructed to report any change in symptoms or the onset of new genito-urinary symptoms. Routine monitoring of PSA levels will be maintained annually. A second opinion was discussed as well as further treatment options and risks and benefits of these treatment options. Urgent intervention is advised if the patient's condition worsens. The patient consented to this management plan. Patient was informed and verbally consented to the use of an ambient scribe for clinic note documentation during this visit. Discussion Notes I discussed the likely self-limiting nature of hematospermia with the patient, reinforcing that workup has not indicated carcinogenic or infectious concerns. The advantages of monitoring symptoms were highlighted, including the strategy to manage potential risks associated with prostate conditions. Second opinions are available for reassurance and or further assessment evaluation. 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 Review of Systems Const All systems reviewed & are unremarkable except as noted in HPI and below Physical Exam Const General: cooperative, healthy appearing, comfortable, no acute distress, well developed, alert and awake Orientation/consciousness: patient oriented x3 Limitations: no limitations HEENT Head: Yes normal to inspection, Yes normocephalic and Yes atraumatic Ears: hearing grossly normal bilaterally Eyes General: appearance normal, both eyes and all related structures Neck Neck: Yes normal visual inspection and Yes trachea midline Chest Chest palpation & inspection: normal inspection of the chest Resp Effort & Inspection: normal respiratory effort and able to speak in complete sentences Cardio Rate: regular rate GI Inspection: Yes normal to inspection General: Yes no CVA tenderness Back/Spine/Pelvis Back: no CVA tenderness Skin General skin exam: no rashes or lesions noted Neuro General: patient oriented x3 Extrem General: Yes normal to inspection Psych Appearance: grossly normal and well kempt Mental Status: mental status grossly normal Speech and movement: Normal speech and movement present and Clear speech present Affect: normal affect Attitude: cooperative Thought process: Normal thought process present Thought content: Normal thought content present Insight: Fair insight present (Psych) Judgement: Fair judgement present (Psych) Office Procedures Post Void Residual Post Residual Void Post Void Residual (PVR): 13 [id number] Void Residual by ultrasound Results AMB Urinalysis, Automated UA Leukoctes 15 Zoya/uL Last Edit by RejiTaktiominal BarthOmiro on 06/18/24 08:02 UA Nitrite Last Edit by [employer] on 06/18/24 08:02 UA Urobilinogen 0.2 mg/dL Last Edit by [employer] LaryOmiro on 06/18/24 08:02 UA Protein 30 mg/dL Last Edit by [employer] on 06/18/24 08:02 UA pH 6.0 Last Edit by Factor 14minal BarthOmiro on 06/18/24 08:02 UA Blood 0 Crow/uL Last Edit by [employer] LaryOmiro on 06/18/24 08:02 UA Specific Orlando 1.030 Last Edit by [employer] on 06/18/24 08:02 UA Ketone Last Edit by [employer] on 06/18/24 08:02 UA Bilirubin 2 mg/dL Last Edit by [employer] on 06/18/24 08:02 UA Glucose 0 mg/dL Last Edit by [employer] on 06/18/24 08:02 Results Reviewed Results Reviewed: Laboratory Last Values Urine pH (Auto) 6.0 06/18/24 07:50 Specific Orlando (Auto) 1.030 06/18/24 07:50 Urine Protein (Auto) 30 mg/dL 06/18/24 07:50 Glucose (UA)(Auto) 0 mg/dL 06/18/24 07:50 Urine Blood (Auto) 0 Crow/uL 06/18/24 07:50 Urine Bilirubin (Auto) 2 mg/dL 06/18/24 07:50 Urine Urobilinogen (Auto) 0.2 mg/dL 06/18/24 07:50 Leukocyte Esterase (Auto) 15 Zoya/uL 06/18/24 07:50 Date of Service: 06/12/24 Procedure(s): US retroperitoneal comp Findings: Right kidney normal size and echotexture, 12.0 cm length. No hydronephrosis. Normal color flow. No nephrolithiasis. Benign exophytic cyst upper pole measuring 5.2 x 4.2 x 4.2 cm. Left kidney normal size and echotexture, 11.4 cm in length. No hydronephrosis. Normal color flow. No nephrolithiasis. Benign renal cortical cysts midpole measuring 1.7 x 2.2 x 1.7 cm and upper pole measuring 1.4 x 1.5 x 1.4 cm. Urinary bladder is unremarkable. Prevoid volume 277.0 mL. Postvoid volume 14.3 mL. Ureteral jets are visualized bilaterally Prostate measures 2.6 x 3.3 x 3.9 cm. Impression: 1. Kidneys normal size and position with normal cortical width and echotexture. No nephrolithiasis or evidence of obstructive uropathy. Incidental simple renal cortical cysts bilaterally. 2. Slightly elevated postvoid residual 3. Prostate volume 18.4 mL Assessment & Plan Assessment & Plan (1) Hematospermia: Code(s): R36.1 - Hematospermia Category: Medical Plan In office urinalysis results reviewed with the patient today; as noted above. PVR 13 mL. Recent retroperitoneal ultrasound results with the patient today; as noted above. Recent PSA results reviewed with the patient today; as noted above. We discussed potential causes of hematospermia as well as further workup in risks and benefits of these interventions. We discussed referral for 2nd opinion He currently denies any bothersome urinary issues or concerns. He reports be happy with current voiding parameters. Will continue with surveillance monitoring. Will obtain PSA in 1 year Follow-up in 1 year with PSA; or sooner with any issues, concerns, and or questions. Orders: Orders AMB Urinalysis Automated Today Z13.9 - Encounter for screening, unspecified AMB Post Void Residual by ultrasound Today R35.0 - Frequency of micturition Patient Instructions: The patient had an opportunity to ask questions regarding the treatment plan. All questions were answered. Physical exam, labs, and imaging were discussed and reviewed in detail. As well as risks, benefits, and discussion of treatment choices. No major barriers to understanding were identified. The patient expressed understanding and agreement with the above treatment plan. The patient was made aware they should contact our office by phone for worsening of their current condition, the appearance of new symptoms, or with any questions or concerns. Compliance is encouraged with any medications and follow up testing that is ordered. It is a privilege to be allowed the opportunity to participate in? your urological care.? Again, if you have any questions or concerns If you have any questions or concerns please do not hesitate to contact me. The office is [phone]. This note is constructed using voice recognition software. While every effort has been made to ensure accuracy aircraft rigging and controls mechanic errors may have been included. Yours sincerely, ELIZABETH Squires Coding Level of Care Code Est Pt Level 3 (68039) Complex EM visit Add On G2211 Diagnoses Hematospermia R36.1 CPT Codes Post Residual Void - PVR CPT Code: 58830-Wcgo Void Residual by ultrasound ([id number])
== END 2024-06-18 08:24 | disposition home or self-care (01) ==
LOC: HO.HUSH 07:35
PROVIDERS: PCP Internal Medicine; Visit Provider Nurse Practitioner Family
DX: R36.1 Hematospermia (principal); Z13.9 Encounter for screening, unspecified
CPT/HCPCS: 99213; G2211

== ENCOUNTER → 2024-06-18 07:35 | Outpatient (BNVA) | payer MEDICARE, SELFPAY | PROVIDERS: PCP Internal Medicine; Visit Provider Nurse Practitioner Family | DX: R35.0 Frequency of micturition (principal); R36.1 Hematospermia | CPT/HCPCS: 51798; 81003; 99212 ==

== ENCOUNTER → 2024-07-04 13:11 | Outpatient (BNVA) | payer MEDICARE, SELFPAY | PROVIDERS: PCP Internal Medicine | DX: Z13.89 Encounter for screening for other disorder (principal) ==

== ENCOUNTER 2024-07-22 10:20 | Outpatient (AMB) | payer MEDICARE, SELFPAY ==
--- NOTE | 2024-07-22 11:15 | MHC.OFFWIV ---
Intake Vital Signs 07/22/24 11:17 Weight 196 lb 2 oz BP 120/86 Blood Pressure Location Lt brachial Position Sitting Pulse 73 Pulse Source Pulse Oximeter Temp 98.4 F Temp Source Oral Pulse Oximetry (%) 98 Oxygen Delivery Method Room Air Intake Visit Reasons: EP-mid back tick bite Intake Note: Patient here for tick bite that he noticed monday night on mid back. Patient Tobacco Use Status: Never used Tobacco Allergies No Known Allergies [No Known Allergies*] Allergy (Verified 07/22/24 11:18) Do you need a note to return to daycare/school/sports/work: No HPI HPI Comments History of Present Illness Details History of Present Illness The patient is a 69-year-old male presenting with concerns regarding a lesion identified as a possible tick bite. The lesion was discovered by the patient's on a Monday evening while in the bedroom post-shower, noted as having a black center with red surrounding it, causing concerns for a potential bullseye appearance suggestive of a tick bite. The patient reported no accompanying symptoms such as pain, itching, bleeding, or discharge. There were also no systemic symptoms such as fever. This concern arises amidst seasonal considerations for Lyme disease. He does admit that he golfs. Upon an attended examination, the lesion presented itself resembling a scab without signs of active tick presence or underlying issues that suggest a more serious condition. He denies chills, body aches, abd pain, CP, SOB, or joint pain. Physical Exam General: Cooperative, healthy appearing, comfortable, no acute distress and well developed Orientation: Patient oriented x3 Respiratory: Normal respiratory effort and able to speak in complete sentences. Clear to auscultation bilaterally Cardiovascular: Regular rate and rhythm. Normal S1 and S2 Skin: Single, small red, slightly raised, non-tender erythematous area with a scab noted superficially. No induration noted, no discharge noted. No streaking. no rashes or lesions noted. Patient was informed and verbally consented to the use of an ambient scribe for clinic note documentation during this visit. 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 The application of Vasotracin ointment is recommended for management. Monitoring for any changes indicative of infection or further complications is essential, especially considering the seasonal relevance of Lyme disease. Immediate re-evaluation should changes such as increased redness or systemic symptoms emerge was discussed, though at present, no further diagnostic testing or medical intervention is deemed necessary. Regular surveillance is advised to ensure the health and safety regarding this concern. Coding Level of Care Code Est Pt Level 3 (25268) Diagnoses Skin lesion of back L98.9
[2024-07-22 11:17] VITALS: BP 120/86; PULSE 73; TEMP 36.9; O2SAT 98
--- OUTSIDE RECORDS SUMMARY | 2024-07-22 11:19 | XMS_ITS | Patient Health Record ---
Author [facility] Address [address] [place] [address] Care Team Providers Care Switcher Name Role Phone Remi Oviedo MD Primary Care Provider Unavaila Cal Casillas Unavailable [phone] Allergies No Known Allergies Reason For Referral [...] Status Risk Notes Problem Plantar fascial fibromatosis (77918036) Plantar fascial fibromatosis (M72.2) Active confirmed Problem Plantar wart (06378279) Plantar wart (B07.0) Active confirmed Plan Of Treatment Pending Test Test Name Order Date X ray : Foot, left 3V 03/24/2021 X ray : Foot, left 3V 04/21/2021 [id number] Destruction, 1-14 06/23/2020 12758, [id number]/INJECT, JOINT/BURSA 0 04/21/2021 Insurance Providers Payer Name Payer Address Payer Phone Subscriber Number Group Number Insured Name Patient Relationship to Insured Coverage Start Date Coverage End Date [facility] [address] [facility] [place] [address] [id number] Hayde Hunter Spouse - patient is the spouse of the insured Medical (General) History Medical History History ICD Code Back,Hip,and Knee pain CAD (Cholesterol) Cataracts Warts Surgical History Surgery Date(Month/Year) knee surgery 2019 neck surgery
== END 2024-07-22 12:19 | disposition home or self-care (01) ==
PROVIDERS: PCP Internal Medicine; Visit Provider Physician Assistant Medical
DX: L98.9 Disorder of the skin and subcutaneous tissue, unspecified (principal)

== ENCOUNTER → 2024-07-22 10:20 | Outpatient (BNVA) | payer MEDICARE, SELFPAY | PROVIDERS: PCP Internal Medicine; Visit Provider Physician Assistant Medical | DX: L98.9 Disorder of the skin and subcutaneous tissue, unspecified (principal) | CPT/HCPCS: 99212 ==

== ENCOUNTER 2024-07-29 08:46 | Outpatient (AMB) | payer MEDICARE, SELFPAY ==
--- OUTSIDE RECORDS SUMMARY | 2024-07-29 08:52 | XMS_ITS | Patient Health Record ---
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 Name Role Phone Remi Oviedo MD Primary Care Provider Unavaila Cal Casillas Unavailable [phone] Allergies No Known Allergies Reason For Referral [...] Status Risk Notes Problem Plantar fascial fibromatosis (72313881) Plantar fascial fibromatosis (M72.2) Active confirmed Problem Plantar wart (87909275) Plantar wart (B07.0) Active confirmed Plan Of Treatment Pending Test Test Name Order Date X ray : Foot, left 3V 03/24/2021 X ray : Foot, left 3V 04/21/2021 19882-Xryb Destruction, 1-14 06/23/2020 38867, [id number]/INJECT, JOINT/BURSA 0 04/21/2021 Insurance Providers Payer Name Payer Address Payer Phone Subscriber Number Group Number Insured Name Patient Relationship to Insured Coverage Start Date Coverage End Date [facility] [address] [facility] [place] [id number] Hayde Hunter Spouse - patient is the spouse of the insured Medical (General) History Medical History History ICD Code Back,Hip,and Knee pain CAD (Cholesterol) Cataracts Warts Surgical History Surgery Date(Month/Year) knee surgery 2019 neck surgery
--- NOTE | 2024-07-29 08:57 | A.OFFPC_ITS ---
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: No Accompanied by: Self / Same As Patient Allergies No Known Allergies [No Known Allergies*] Allergy (Verified 07/29/24 09:32) Medication List - Last Reconciled 07/29/24 by Howie Hanson MD atorvastatin 20 mg PO DAILY diclofenac sodium 75 mg PO BID lisinopril 20 mg PO DAILY Tobacco use date assessed: 07/29/24 Fall risk assessment: No Falls in past year Last assessed Fall Risk: 07/29/24 Dental Screening Dental Screen Date: 07/29/24 Did you have a dental visit in the last 12 months?: Yes Did you have a dental problem in the last 6 months where you did not have access to dental care?: No PFSH Medical History Essential hypertension Hypercholesteremia Surgical History History of colonoscopy (~08/13/14) H/O spinal fusion H/O left knee surgery Family History Mother No problems noted. Father No problems noted. 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 1. Little interest or pleasure in doing things: not at all 2. Feeling down, depressed, or hopeless: not at all 3. Trouble falling or staying asleep, or sleeping too much: not at all 4. Feeling tired or having little energy: not at all 5. Poor appetite or overeating: not at all 6. Feeling bad about yourself - or that you are a failure or have let yourself or your family down: not at all 7. Trouble concentrating on things, such as reading the newspaper or watching television: not at all 8. Moving or speaking so slowly that other people could have noticed. Or the opposite - being so fidgety or restless that you have been moving around a lot more than usual: not at all 9. Thoughts that you would be better off or of hurting yourself in some way: not at all Total score: 0 Depression Screening Interpretation: Negative Depression Screening Done: Yes Source: Developed by Drs. Arthur Kennedy, Patricia Coleman, Norman Winn and colleagues, with an educational dariana from [employer]. Thrive Questionnaire Date Thrive assessed: 07/29/24 I am a: Patient Within the past 12 months, did the food you bought not last and you didn't have the money to get more?: Never true Within the past 12 months, did you worry whether your food would run out before you got money to buy more?: Never true Do you have trouble paying for medicines?: No Do you have trouble getting transportation to medical appointments?: No Do you have trouble paying your heating and electricity bill?: No Do you have trouble taking care of your child, family member or friend?: No Do you have trouble with day-to-day activities such as bathing, preparing meals, shopping, managing finances, etc.?: No Are you currently unemployed and looking for a job?: No Are you interested in more education?: No THRIVE Score: 0 AUDIT C Alcohol Use Questionnaire (AUDIT-C) 1. How often do you have a drink containing alcohol?: Monthly or less 2. How many drinks containing alcohol do you have on a typical day when you are drinking?: 1 or 2 3. How often do you have six or more drinks on one occasion?: Less than monthly Total Score: 2 ROSHNI-7 AMB Questionnaire ROSHNI-7 Date ROSHNI - 7 assessed: 07/29/24 Feeling nervous, anxious, or on edge: 0 = Not at all Not being able to stop or control worryin = Not at all Worrying too much about different things: 0 = Not at all Trouble relaxin = Not at all Being so restless that it is hard to sit still: 0 = Not at all Becoming easily annoyed or irritable: 0 = Not at all Feeling afraid as if something awful might happen: 0 = Not at all Total ROSHNI-7 score (0-4 normal; 5-9 mild; 10-14 moderate; 15-21 severe): 0 Source: Developed by Drs. Arthur Kennedy, Patricia Coleman, Norman Winn and colleagues, with an educational dariana from [employer]. Physical exam (Primary Care) Vital Signs: Last Vital Signs Temp 97.9 F 07/29/24 08:59 Pulse 71 07/29/24 08:59 BP 126/70 07/29/24 08:59 Pulse Ox 96 07/29/24 08:59 Oxygen Delivery Method Room Air 07/29/24 08:59 BMI result Body Mass Index 30.9 Tobacco/Smoking Status: Tobacco use Status Tobacco use date assessed 07/29/24 07/29/24 09:04 Patient Tobacco Use Status Never used Tobacco 07/29/24 09:04 e-Cigarette/Vaping Use Never Used 07/29/24 09:04 PHQ-9: PHQ-9 Score PHQ-9: Total score 0 07/29/24 09:04 Depression Screening Interpretation: Negative Thrive Assessment: Date of Thrive Assessment Date Thrive assessed 07/29/24 07/29/24 09:04 Advance Care Planning discussion: Exists, not on file Date of discussion: 07/29/24 Forms completed: Health Care Proxy and MOLST Time spent: 1-15 minutes, not on file Actual minutes spent: 5 Coding Level of Care Code New Pt Level 4 (71426) Complex EM visit Add On G2211 Diagnoses Essential hypertension I10 Hypercholesteremia E78.00 Additional Codes Vital Signs *Quality* - Advance Care Planning discussion: Exists, not on file ([id number]) Vital Signs *Quality* - Time spent: 1-15 minutes, not on file ([id number]) Assessment & Plan Assessment & Plan (1) Essential hypertension: Code(s): I10 - Essential (primary) hypertension Category: Medical Plan: BP in range. Continue current medications. (2) Hypercholesteremia: Code(s): E78.00 - Pure hypercholesterolemia, unspecified Category: Medical Plan: Continue statins at same dosage. Plan History of Present Illness - The patient is a 69-year-old male presenting for a routine follow-up and wellness check. - Blood pressure management is in place with antihypertensive treatment and regular monitoring at home, with acceptable levels noted by the patient. - Knee osteoarthritis managed with periodic injections; the potential need for knee replacement exists if symptoms worsen. 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 - Reported prior urological issues have been evaluated with no significant findings, and routine urologist monitoring is in place. - Advised to consider a follow-up colonoscopy as part of routine screening, given upcoming due date and preference over Cologuard. - Normal vision has been maintained post-cataract surgery and no refill request made at this visit. 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 - Participates in activities such as golfing thrice weekly, although not walking the course. - Previously an avid runner, which he continued until aged [age]. - Prefers biking to the gym as a form of exercise, which has been limited by current knee condition and weather conditions. - Engages in family life with involvement in managing family business with his brother and nephew. Review of Systems - Cardiovascular: Reports blood pressure is controlled with medication. - Musculoskeletal: Reports knee pain managed with injections; no current need for knee replacement but may require in the future. - Neurological: Denies current muscle relaxant use after cervical fusion surgery. - Genitourinary: Reported prior urological issues under current evaluation with no significant findings. - Visual: Reports normal vision post-cataract surgery, no halos around lights. Physical Exam General: Cooperative and healthy appearing Nutritional Appearance: Well nourished Orientation/consciousness: Patient oriented x3 Limitations: No limitations Head: Normal to inspection General: Appearance normal, both eyes and all related structures Neck: Normal visual inspection Chest: Normal palpation of entire chest wall Respiratory: N ormal respiratory effort Neurology: Patient oriented x3, no issues with vision, no halos around lights. Results - Labs: Scheduled for routine blood work on fasting. - Colonoscopy: Last performed in 2014; normal results with follow-up recommended. Plan 1. Essential Hypertension - Continue monitoring and current medication for controlled blood pressure. 2. Osteoarthritis Of The Knee - Maintain injection therapy, potential knee replacement if indicated. 3. Post-Spinal Fusion - Discontinue muscle relaxants, monitor for any recurrent issues. 4. Benign Prostatic Hyperplasia - Yearly urology check-up, symptom monitoring required. 5. Colonoscopy Due - Proceed with scheduled follow-up colonoscopy per patient preference. 6. Cataract Surgery Status - No increase in follow-up or change in care needed post-surgery noted. Discussion Notes I discussed with the patient the maintenance of his blood pressure control through his current medication regimen and reiterated the importance of home monitoring. We reviewed his knee osteoarthritis, and I advised that while current injection therapy is effective, a future knee replacement might be necessary if symptoms progress. For his post-spinal fusion status, I explained the reduction in muscle relaxant use is positive, and we would continue monitor ing without current need for intervention. We also discussed his benign prostatic hyperplasia with a plan for continued annual evaluations. Regarding colon cancer screening, I recommended a colonoscopy given proximity to his due date and the patient's apprehension towards Cologuard. Additionally, we mentioned his overall normal vision post-cataract surgery and need to keep vision monitoring routine. Patient Instructions - Continue monitoring your blood pressure at home and report any significant changes. - Exercise at least four times weekly with activities compatible with any physical limitations. - Schedule a follow-up colonoscopy within the year for continued screening. - Return if experiencing any new joint pain, changes in vision, or urinary symptoms. - Maintain regular urology appointments and address any emerging symptoms. - Follow up in six months unless concerns arise sooner. Orders: Orders Complete Blood Count no Diff Today E78.00 - Pure hypercholesterolemia, unspecified, I10 - Essential (primary) hypertension Liver Panel Today E78.00 - Pure hypercholesterolemia, unspecified, I10 - Essential (primary) hypertension Thyroid Stimulating Hormone Today E78.00 - Pure hypercholesterolemia, unspecified, I10 - Essential (primary) hypertension UA and rflx microscopic Today E78.00 - Pure hypercholesterolemia, unspecified, I10 - Essential (primary) hypertension Basic Metabolic Panel Today E78.00 - Pure hypercholesterolemia, unspecified, I10 - Essential (primary) hypertension Lipid Panel Today E78.00 - Pure hypercholesterolemia, unspecified, I10 - Essential (primary) hypertension Referrals Gastroenterology Referral Z12.11 - Encounter for screening for malignant neoplasm of colon
[2024-07-29 08:59] VITALS: BP 126/70; PULSE 71; TEMP 36.6; O2SAT 96; BMI 30.9
== END 2024-07-29 09:29 | disposition home or self-care (01) ==
LOC: HO.HMCHD 08:47
PROVIDERS: PCP Internal Medicine; Visit Provider Internal Medicine
DX: I10 Essential (primary) hypertension (principal); E78.00 Pure hypercholesterolemia, unspecified; Z00.00 Encounter for general adult medical examination without abnormal findings

== ENCOUNTER → 2024-07-29 08:46 | Outpatient (BNVA) | payer MEDICARE, SELFPAY | PROVIDERS: PCP Internal Medicine; Visit Provider Internal Medicine | DX: I10 Essential (primary) hypertension (principal); E78.00 Pure hypercholesterolemia, unspecified | CPT/HCPCS: 99202 ==

== ENCOUNTER 2024-08-01 07:01 | Outpatient (REF) | payer MEDICARE, SELFPAY ==
[2024-08-01 10:00] LABS: Hematocrit 42.1 % (42.0-52.0); Hemoglobin 14.5 g/dl (14.0-18.0); Mean Corpuscular HGB Conc 34.4 g/dl (31.0-36.0); Mean Corpuscular Hemoglobin 30.5 pg (27.0-33.0); Mean Corpuscular Volume 88.4 fL (80.0-98.0); Mean Platelet Volume 10.8 fL (9.4-12.4); Platelet Count 158 X10*3/uL (160-400); Red Blood Count 4.76 X10*6/uL (4.60-5.80); Red Cell Distribution Width 14.1 % (11.0-16.0); White Blood Count 6.5 X10*3/uL (4.8-10.8)
[2024-08-01 10:01] LABS: Appearance Urine Turbid; Color Urine Dark Yellow; Glucose Urine UA Negative (Negative); Leukocyte Esterase Urine Negative (Negative); Nitrite Urine Negative (Negative); PH 5.5 (5.0-9.0); Specific Gravity - Urine 1.025 (1.005-1.025); Urine Blood Negative (Negative); Urine Ketones Trace mg/dL (Negative); Urine Protein Trace mg/dL (Neg-Trace)
[2024-08-01 10:21] LABS: Anion Gap 11 (12-20)
[2024-08-01 10:36] LABS: Alanine Aminotransferase 35 U/L (0-40); Albumin Level 4.4 g/dL (3.5-5.0); Alkaline Phosphatase 67 U/L (39-117); Aspartate Amino Transferase 24 U/L (5-37); Bilirubin Direct 0.2 mg/dL (0.0-0.5); Bilirubin Total 0.7 mg/dL (0.0-1.0); Blood Urea Nitrogen 21 mg/dL (9-16); Calcium 8.9 mg/dL (8.4-10.2); Carbon Dioxide 26 mmol/L (22-29); Chloride 110 mmol/L (96-108); Cholesterol 167 mg/dL (<200); Estimated Glomerular Filt Rate > 60; Glucose Random 115 mg/dL (60-115); HDL Cholesterol 36 mg/dL (>40); LDL Cholesterol Calculated 112 mg/dL (<100); Potassium 4.2 mmol/L (3.3-5.1); Sodium 143 mmol/L (135-145); Thyroid Stimulating Hormone 2.11 uIU/mL (0.32-4.0); Total Protein 6.6 g/dL (6.5-8.0); Triglycerides 98 mg/dL (<150)
== END 2024-08-01 07:02 | disposition home or self-care (01) ==
LOC: HO.10HDL 07:01
PROVIDERS: Visit Provider Internal Medicine
DX: I10 Essential (primary) hypertension (principal); E78.00 Pure hypercholesterolemia, unspecified
CPT/HCPCS: 36415; 80048; 80061; 80076; 81003; 84443; 85027

== ENCOUNTER 2024-10-23 13:48 | Outpatient (AMB) | payer MEDICARE, SELFPAY ==
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
--- OUTSIDE RECORDS SUMMARY | 2024-10-23 15:57 | XMS_ITS | Patient Health Record ---
Author Organization [facility] Address [address] [place] [address] Care Team Providers Care Segment Assembler Name Role Phone OMARI DOW Primary Care Provider Lisa Sotomayor Jr, Matheus Albarran Reason For Referral No Information Medications Medication SIG (Take, Route, Fr equency, Duration) Notes Start Date End Date Status Suprep Bowel Prep as directed Orally f or 1 dose 06/19/2014 Active Suprep Bowel Prep 1 as directed Orally 1 for 1 dose 06/19/2014 Active Carisoprodol 350 MG TK 1 T PO D Oral for 30 Active Diclofenac Sodium 75 MG TK 1 T PO D Oral for 30 Active Problems Problem Type SNOMED Code ICD Code Onset Dates Problem Status W/U Status Risk Notes Problem 957011649 Colon cancer screening (V76.51) Active confirmed 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 use of non-steroidal anti-inflammato gely (NSAID) (V58.64) Active confirmed Plan Of Treatment Future Test Test Name Order Date COLONOSCOPY 06/19/2014 Next Appt Details Provider Name:Matheus andrea Jr, 11/04/2024 01:35:00 PM, [address], [address], [place], [address], Insurance Providers Payer Name Payer Address Payer Phone Subscriber Number Group Number Insured Name Patient Relationship to Insured Coverage Start Date Coverage End Date [facility]ICARE OF [facility] [address] [place] [address] [id number] SHARAN ENGLISH Self - patient is the insured [employer] CLAIMS [address] [place] [phone] [id number] SHARAN ENGLISH Self - patient is the insured Medical (General) History Medical History History ICD Code colonoscopy 03-12-2004 history of iron def anemia Denies [place],DM,CVA,Lung disease,renal dise ase elevated cholesterol Surgical History Surgery Date(Month/Year) left knee arthroscopy neck surgery
--- OUTSIDE RECORDS SUMMARY | 2024-10-23 15:57 | XMS_ITS | Patient Health Record ---
Author Organization [facility] Address [address] [place] [address] Care Team Providers Care Tool Crib Lead Name Role Phone Remi Oviedo MD Primary Care Provider Unavaila Cal Casillas Unavailable [phone] Allergies No Known Allergies Reason For Referral No Information Medications Medication SIG (Take, Route, Frequency, Duration) Notes Start Date End Date Status Atorvastatin Calcium 20 MG 1 tablet Oral ly Once a day; Duration: 30 day(s) Active Carisoprodol 350 MG 1 [...] Status Risk Notes Problem Plantar fascial fibromatosis (91220046) Plantar fascial fibromatosis (M72.2) Active confirmed Problem Plantar wart (57656737) Plantar wart (B07.0) Active confirmed Plan Of Treatment Pending Test Test Name Order Date X ray : Foot, left 3V 03/24/2021 X ray : Foot, left 3V 04/21/2021 [id number] Destruction, 1-14 06/23/2020 [id number], [id number], JOINT/BURSA 0 04/21/2021 Insurance Providers Payer Name Payer Address Payer Phone Subscriber Number Group Number Insured Name Patient Relationship to Insured Coverage Start Date Coverage End Date [facility] [address] [facility] [place] [id number] Hayde Hunter Spouse - patient is the spouse of the insured Medical (General) History Medical History History ICD Code Back,Hip,and Knee pain CAD (Cholesterol) Cataracts Warts Surgical History Surgery Date(Month/Year) knee surgery 2019 neck surgery
== END 2024-10-23 14:13 | disposition home or self-care (01) ==
LOC: HO.HSM 13:49
PROVIDERS: PCP Internal Medicine; Referring Provider Internal Medicine; Visit Provider Registered Nurse
DX: S13.9XXS Sprain of joints and ligaments of unspecified parts of neck, sequela (principal); M50.90 Cervical disc disorder, unspecified, unspecified cervical region
CPT/HCPCS: 99213

== ENCOUNTER → 2024-10-23 13:48 | Outpatient (BNVA) | payer MEDICARE, SELFPAY | PROVIDERS: PCP Internal Medicine; Referring Provider Internal Medicine; Visit Provider Registered Nurse | DX: S13.9XXD Sprain of joints and ligaments of unspecified parts of neck, subsequent encounter (principal); M50.90 Cervical disc disorder, unspecified, unspecified cervical region | CPT/HCPCS: 99212 ==